=== PATIENT | male | born 1965 | race Hispanic/Latino ===

== ENCOUNTER 2018-03-04 14:08 | Inpatient (IN) | payer OTHER ==
[~2018-03-04] VITALS: Ht 170.2 cm; Wt 58.1 kg
[~2018-03-04 14:08] MED LIST: AMITRIPTYLINE100 MG PO; ATORVASTATIN CA20 MG PO; CEFEPIME-D1 GM/50 ML IVP; CLOPIDOGREL75 MG PO; FERROUS SULFAT325 MG PO; GABAPENTIN400 MG PO; KLONOPIN1 MG PO; LANTUS100 UNITS/ SQ; LISINOPRIL10 MG PO; METOPROLOL TART50 MG PO; SOMA350 MG PO; TYLENOL WITH C1 EACH PO; ULTRAM50 MG PO; VANCOMYCIN HCL1 GM IV
--- OUTSIDE RECORDS SUMMARY | 2018-03-04 14:12 | XMS REPORT ---
Author Author [facility] Address Unknown Phone Unavailable Care Team Providers Care Surgical Nurse Name Role Phone UNKNOWN, REFFERING PP Unavailable SERGIO HUSAIN Unavailable Unavailable Problems This patient has no known problems. Allergies, Adverse Reactions, Alerts This patient has no known allergies or adverse reactions. Medications This patient has no known medications. Encounters Start Date/Time End Date/Time Encounter Type Admission Type Attending Clinicians Care Facility Care Department Encounter ID 2017-05-07 00:00:00 2017-05-07 00:00:00 Outpatient [facility] [id number] Results Test Description Test Time Test Comments Text Results Atomic Results Result Comments POC Glucose, Blood 2017-05-11 11:11:00 POC Glucose (test code=POCGLUC) 208 mg/dL 70-115 If you consider your patient critically ill, the Irene Accu-Chek InformII metershould not be used for Glucose determinations.Draw a venous Glucose and send to the Main Lab for Analysis. POC Glucose, [id number] 07:26:00* Test Item Value Reference Range Comments POC Glucose (test code=POCGLUC) 154 mg/dL 70-115 If you consider your patient critically ill, the Irene Accu-Chek InformII metershould not be used for Glucose determinations.Draw a venous Glucose and send to the Main Lab for Analysis. Basic Metabolic [id number] 06:29:00* Test Item Value Reference Range Comments Sodium (test code=NA) 145 mmol/L 135-145 Potassium (test code=K) 3.9 mmol/L 3.5-5.1 Chloride (test code=CL) 108 mmol/L 98-105 Carbon Dioxide (test code=CO2) 23 mmol/L 22-29 Glucose (test code=GLU) 126 mg/dL 70-115 Blood Urea Nitrogen (test code=BUN) 22 mg/dL 6-20 Creatinine (test code=CREAT) 1.5 mg/dL 0.7-1.2 Calcium (test code=CA) 8.6 mg/dL 8.3-10.5 BUN/Creatinine Ratio (test code=BCRATIO) 14.7 Anion Gap (test code=AGAP) 14 mmol/L 7-16 Estimated GFR (test code=GFR) 52 mL/min/1.73m2 eGFR (estimated Glomerular Filtration Rate) is an estimated value,calculated from the patient's serum creatinine using the MDRD equation.It is NOT the patient's actual GFR. The eGFR provides a more clinicallyuseful measure of kidney disease than serum creatinine alone.This calculation takes sex and race into account, if the informationis provided. If the race is not provided, and the patient isAfrican- [place], multiply by 1.212. If sex is not provided, and thepatient is female, multiply by 0.742. Results for patients <18 years ofage have not been validated by the MDRD study and should be interpretedwith caution.eGFR Result Interpretation:eGFR > or=60 is in the Normal RangeeGFR < 60 may mean kidney diseaseeGFR < 15 may mean kidney failureRanges recommended by the National Kidney Foundation,http://nkdep.nih.gov [id number] 06:00:00* Test Item Value Reference Range Comments WBC (test code=WBC) 12.1 K/cumm 4.4-10.5 RBC (test code=RBC) 3.56 M/cumm 4.10-5.70 Hemoglobin (test code=HGB) 10.4 gm/dL 13.4-17.4 Hematocrit (test code=HCT) 33.0 % 38.7-52.0 MCV (test code=MCV) 92.7 fL 80-100 MCH (test code=MCH) 29.1 pg 27.0-32.5 MCHC (test code=MCHC) 31.4 g/dL 32.0-37.5 RDW (test code=RDW) 17.8 % 11.5-14.5 Platelet Count (test code=PLTCT) 451 K/cumm 140-440 MPV (test code=MPV) 9.8 fL RBC, Crossmatch [id number] 06:00:00* Test Item Value Reference Range Comments Product 1 Code (test code=PRODCODE1) E4532 Unit 1 ID (test code=UNITID1) [id number] Unit 1 ABO (test code=UNITABO1) A Unit 1 Rh (test code=UNITRH1) NEG Unit 1 Interp (test code=UNITINTERP1) Compatible Unit 1 Status (test code=UNITSTAT1) PT Product 2 Code (test code=PRODCODE2) E4532 Unit 2 ID (test code=UNITID2) [id number] Unit 2 ABO (test code=UNITABO2) O Unit 2 Rh (test code=UNITRH2) NEG Unit 2 Interp (test code=UNITINTERP2) Compatible Unit 2 Status (test code=UNITSTAT2) PT Product 3 Code (test code=PRODCODE3) E0336 Unit 3 ID (test code=UNITID3) [id number] Unit 3 ABO (test code=UNITABO3) A Unit 3 Rh (test code=UNITRH3) NEG Unit 3 Interp (test code=UNITINTERP3) Compatible Unit 3 Status (test code=UNITSTAT3) PT Product 4 Code (test code=PRODCODE4) E0336 Unit 4 ID (test code=UNITID4) [id number] Unit 4 ABO (test code=UNITABO4) A Unit 4 Rh (test code=UNITRH4) NEG Unit 4 Interp (test code=UNITINTERP4) Compatible Unit 4 Status (test code=UNITSTAT4) PT POC Glucose, [id number] 20:13:00* Test Item Value Reference Range Comments POC Glucose (test code=POCGLUC) 170 mg/dL 70-115 If you consider your patient critically ill, the Irene Accu-Chek InformII metershould not be used for Glucose determinations.Draw a venous Glucose and send to the Main Lab for Analysis. POC Glucose, [id number] 16:15:00* Test Item Value Reference Range Comments POC Glucose (test code=POCGLUC) 275 mg/dL 70-115 Notify RN or MDIf you consider your patient critically ill, the Irene Accu-Chek InformII metershould not be used for Glucose determinations.Draw a venous Glucose and send to the Main Lab for Analysis. POC Glucose, [id number] 14:36:00* Test Item Value Reference Range Comments POC Glucose (test code=POCGLUC) 294 mg/dL 70-115 Notify RN or MDIf you consider your patient critically ill, the Irene Accu-Chek InformII metershould not be used for Glucose determinations.Draw a venous Glucose and send to the Main Lab for Analysis. Comprehensive Metabolic [id number] 10:35:00* Test Item Value Reference Range Comments Sodium (test code=NA) 136 mmol/L 135-145 Potassium (test code=K) 4.8 mmol/L 3.5-5.1 Chloride (test code=CL) 101 mmol/L 98-105 Carbon Dioxide (test code=CO2) 18 mmol/L 22-29 Glucose (test code=GLU) 361 mg/dL 70-115 Blood Urea Nitrogen (test code=BUN) 27 mg/dL 6-20 Creatinine (test code=CREAT) 1.5 mg/dL 0.7-1.2 Calcium (test code=CA) 8.2 mg/dL 8.3-10.5 Prot Total (test code=TP) 5.5 g/dL 6.4-8.3 Albumin (test code=ALB) 3.2 g/dL 3.5-5.2 A/G Ratio (test code=AGRATIO) 1.4 Ratio Globulin (test code=GLOB) 2.3 2.9-3.1 Bili Total (test code=TBIL) 0.2 mg/dL 0.1-0.9 Alk Phos (test code=APHOS) 94 U/L 40-129 AST (test code=AST) 44 U/L 1-40 ALT (test code=ALT) 29 U/L 1-41 BUN/Creatinine Ratio (test code=BCRATIO) 18.0 Anion Gap (test code=AGAP) 17 mmol/L 7-16 Estimated GFR (test code=GFR) 52 mL/min/1.73m2 eGFR (estimated Glomerular Filtration Rate) is an estimated value,calculated from the patient's serum creatinine using the MDRD equation.It is NOT the patient's actual GFR. The eGFR provides a more clinicallyuseful measure of kidney disease than serum creatinine alone.This calculation takes sex and race into account, if the informationis provided. If the race is not provided, and the patient isAfrican- [place], multiply by 1.212. If sex is not provided, and thepatient is female, multiply by 0.742. Results for patients <18 years ofage have not been validated by the MDRD study and should be interpretedwith caution.eGFR Result Interpretation:eGFR > or=60 is in the Normal RangeeGFR < 60 may mean kidney diseaseeGFR < 15 may mean kidney failureRanges recommended by the National Kidney Foundation,http://nkdep.nih.gov CK [id number] 10:34:00* Test Item Value Reference Range Comments CK (test code=CK) 155 U/L 39-308 CK [id number] 10:34:00* Test Item Value Reference Range Comments CK (test code=CK) 155 U/L 39-308 CKMB (test code=CKMB) 3.6 ng/mL 0.0-4.9 CKMB% (test code=CKMBP) 2.3 % 0.0-3.4 [id number] 08:33:00* Test Item Value Reference Range Comments WBC (test code=WBC) 11.0 K/cumm 4.4-10.5 RBC (test code=RBC) 3.22 M/cumm 4.10-5.70 Hemoglobin (test code=HGB) 9.7 gm/dL 13.4-17.4 READ BACK LAB VALUESVERIFIED BY REPEAT TESTINGCalled to Ari Botello RN at 0830 05/10/2017. Blood transfusion. DD Hematocrit (test code=HCT) 29.8 % 38.7-52.0 MCV (test code=MCV) 92.4 fL 80-100 MCH (test code=MCH) 30.1 pg 27.0-32.5 MCHC (test code=MCHC) 32.6 g/dL 32.0-37.5 RDW (test code=RDW) 18.0 % 11.5-14.5 Platelet Count (test code=PLTCT) 398 K/cumm 140-440 MPV (test code=MPV) 8.9 fL Troponin [id number] 08:01:00* Test Item Value Reference Range Comments Troponin T (test code=BRODIE) 0.043 ng/mL 0.000-0.090 POC Glucose, [id number] 07:47:00* Test Item Value Reference Range Comments POC Glucose (test code=POCGLUC) 254 mg/dL 70-115 Notify RN or MDIf you consider your patient critically ill, the Irene Accu-Chek InformII metershould not be used for Glucose determinations.Draw a venous Glucose and send to the Main Lab for Analysis. FF Plasma, 2 [id number] 06:00:00* Test Item Value Reference Range Comments Product 1 Code (test code=PRODCODE1) E7760 Unit 1 ID (test code=UNITID1) [id number] Unit 1 ABO (test code=UNITABO1) A Unit 1 Rh (test code=UNITRH1) POS Unit 1 Status (test code=UNITSTAT1) PT Product 2 Code (test code=PRODCODE2) E2701 Unit 2 ID (test code=UNITID2) [id number] Unit 2 ABO (test code=UNITABO2) A Unit 2 Rh (test code=UNITRH2) POS Unit 2 Status (test code=UNITSTAT2) PT POC Glucose, [id number] 20:47:00* Test Item Value Reference Range Comments POC Glucose (test code=POCGLUC) 136 mg/dL 70-115 Notify RN or MDIf you consider your patient critically ill, the Irene Accu-Chek InformII metershould not be used for Glucose determinations.Draw a venous Glucose and send to the Main Lab for Analysis. POC Glucose, [id number] 16:39:00* Test Item Value Reference Range Comments POC Glucose (test code=POCGLUC) 181 mg/dL 70-115 If you consider your patient critically ill, the Irene Accu-Chek InformII metershould not be used for Glucose determinations.Draw a venous Glucose and send to the Main Lab for Analysis. POC Glucose, [id number] 12:32:00* Test Item Value Reference Range Comments POC Glucose (test code=POCGLUC) 305 mg/dL 70-115 If you consider your patient critically ill, the Irene Accu-Chek InformII metershould not be used for Glucose determinations.Draw a venous Glucose and send to the Main Lab for Analysis. [id number] 09:41:00* Test Item Value Reference Range Comments WBC (test code=WBC) 10.9 K/cumm 4.4-10.5 RBC (test code=RBC) 2.62 M/cumm 4.10-5.70 Hemoglobin (test code=HGB) 7.3 gm/dL 13.4-17.4 Hematocrit (test code=HCT) 23.0 % 38.7-52.0 MCV (test code=MCV) 87.9 fL 80-100 MCH (test code=MCH) 28.0 pg 27.0-32.5 MCHC (test code=MCHC) 31.9 g/dL 32.0-37.5 RDW (test code=RDW) 18.7 % 11.5-14.5 Platelet Count (test code=PLTCT) 417 K/cumm 140-440 VERIFIED BY REPEAT TESTING READ BACK LAB VALUESreceived REJIMichaela MARIE BOTELLO05/09/2017 @ 0941KP MPV (test code=MPV) 7.5 fL Basic Metabolic [id number] 09:22:00* Test Item Value Reference Range Comments Sodium (test code=NA) 146 mmol/L 135-145 Potassium (test code=K) 4.1 mmol/L 3.5-5.1 Chloride (test code=CL) 112 mmol/L 98-105 Carbon Dioxide (test code=CO2) 22 mmol/L 22-29 Glucose (test code=GLU) 122 mg/dL 70-115 Blood Urea Nitrogen (test code=BUN) 32 mg/dL 6-20 Creatinine (test code=CREAT) 1.5 mg/dL 0.7-1.2 Calcium (test code=CA) 8.5 mg/dL 8.3-10.5 BUN/Creatinine Ratio (test code=BCRATIO) 21.3 Anion Gap (test code=AGAP) 12 mmol/L 7-16 Estimated GFR (test code=GFR) 52 mL/min/1.73m2 eGFR (estimated Glomerular Filtration Rate) is an estimated value,calculated from the patient's serum creatinine using the MDRD equation.It is NOT the patient's actual GFR. The eGFR provides a more clinicallyuseful measure of kidney disease than serum creatinine alone.This calculation takes sex and race into account, if the informationis provided. If the race is not provided, and the patient isAfrican- [place], multiply by 1.212. If sex is not provided, and thepatient is female, multiply by 0.742. Results for patients <18 years ofage have not been validated by the MDRD study and should be interpretedwith caution.eGFR Result Interpretation:eGFR > or=60 is in the Normal RangeeGFR < 60 may mean kidney diseaseeGFR < 15 may mean kidney failureRanges recommended by the National Kidney Foundation,http://nkdep.nih.gov Prothrombin [id number] 09:16:00* Test Item Value Reference Range Comments PT (test code=PT) 16.60 seconds 9.78-13.35 INR (test code=INR) 1.46 Ratio 0.6-1.2 POC Glucose, [id number] 07:57:00* Test Item Value Reference Range Comments POC Glucose (test code=POCGLUC) 126 mg/dL 70-115 If you consider your patient critically ill, the Irene Accu-Chek InformII metershould not be used for Glucose determinations.Draw a venous Glucose and send to the Main Lab for Analysis. Prothrombin [id number] 07:55:00* Test Item Value Reference Range Comments PT (test code=PT) 19.20 seconds 9.78-13.35 READ BACK LAB VALUES VERIFIED BY REPEAT TESTING , Ari REYES INR (test code=INR) 1.69 Ratio 0.6-1.2 [id number] 07:26:00* Test Item Value Reference Range Comments WBC (test code=WBC) 8.6 K/cumm 4.4-10.5 RBC (test code=RBC) 2.19 M/cumm 4.10-5.70 Hemoglobin (test code=HGB) 6.5 gm/dL 13.4-17.4 VERIFIED BY REPEAT TESTING READ BACK LAB VALUESASHA EDDY XXVEPLG3805/09/2017 @ 0726KP Hematocrit (test code=HCT) 20.1 % 38.7-52.0 MCV (test code=MCV) 91.8 fL 80-100 MCH (test code=MCH) 29.6 pg 27.0-32.5 MCHC (test code=MCHC) 32.2 g/dL 32.0-37.5 RDW (test code=RDW) 18.6 % 11.5-14.5 Platelet Count (test code=PLTCT) 124 K/cumm 140-440 VERIFIED BY REPEAT TESTING READ BACK LAB VALUESNO REASONT. EMY BOTELLOUGGDHEERAJ ICZMUQO4205/09/2017 @ 0726KP MPV (test code=MPV) 12.3 fL Basic Metabolic [id number] 06:35:00* Test Item Value Reference Range Comments Sodium (test code=NA) 145 mmol/L 135-145 Potassium (test code=K) 4.8 mmol/L 3.5-5.1 Hemolyzed Chloride (test code=CL) 112 mmol/L 98-105 Carbon Dioxide (test code=CO2) 19 mmol/L 22-29 Glucose (test code=GLU) 112 mg/dL 70-115 Blood Urea Nitrogen (test code=BUN) 34 mg/dL 6-20 Creatinine (test code=CREAT) 1.6 mg/dL 0.7-1.2 Calcium (test code=CA) 8.3 mg/dL 8.3-10.5 BUN/Creatinine Ratio (test code=BCRATIO) 21.3 Anion Gap (test code=AGAP) 14 mmol/L 7-16 Estimated GFR (test code=GFR) 48 mL/min/1.73m2 eGFR (estimated Glomerular Filtration Rate) is an estimated value,calculated from the patient's serum creatinine using the MDRD equation.It is NOT the patient's actual GFR. The eGFR provides a more clinicallyuseful measure of kidney disease than serum creatinine alone.This calculation takes sex and race into account, if the informationis provided. If the race is not provided, and the patient isAfrican- [place], multiply by 1.212. If sex is not provided, and thepatient is female, multiply by 0.742. Results for patients <18 years ofage have not been validated by the MDRD study and should be interpretedwith caution.eGFR Result Interpretation:eGFR > or=60 is in the Normal RangeeGFR < 60 may mean kidney diseaseeGFR < 15 may mean kidney failureRanges recommended by the National Kidney Foundation,http://nkdep.nih.gov POC Glucose, [id number] 20:16:00* Test Item Value Reference Range Comments POC Glucose (test code=POCGLUC) 342 mg/dL 70-115 Notify RN or MDIf you consider your patient critically ill, the Irene Accu-Chek InformII metershould not be used for Glucose determinations.Draw a venous Glucose and send to the Main Lab for Analysis. Prothrombin [id number] 12:23:00* Test Item Value Reference Range Comments PT (test code=PT) 72.20 seconds 9.78-13.35 INR (test code=INR) 6.45 Ratio 0.6-1.2 Partial Thromboplastin [id number] 12:23:00* Test Item Value Reference Range Comments aPTT (test code=PTT) 73.30 seconds 24.39-37.25 [id number] 12:23:00* Test Item Value Reference Range Comments WBC (test code=WBC) 12.1 K/cumm 4.4-10.5 RBC (test code=RBC) 2.84 M/cumm 4.10-5.70 Hemoglobin (test code=HGB) 8.0 gm/dL 13.4-17.4 READ BACK LAB VALUESVERIFIED BY REPEAT TESTINGrechecked & called to .yecenia,rn @ 1223, post txn/mdj Hematocrit (test code=HCT) 24.7 % 38.7-52.0 MCV (test code=MCV) 87.0 fL 80-100 MCH (test code=MCH) 28.2 pg 27.0-32.5 MCHC (test code=MCHC) 32.4 g/dL 32.0-37.5 RDW (test code=RDW) 18.5 % 11.5-14.5 Platelet Count (test code=PLTCT) 450 K/cumm 140-440 MPV (test code=MPV) 8.1 fL POC Glucose, [id number] 11:25:00* Test Item Value Reference Range Comments POC Glucose (test code=POCGLUC) 111 mg/dL 70-115 If you consider your patient critically ill, the Irene Accu-Chek InformII metershould not be used for Glucose determinations.Draw a venous Glucose and send to the Main Lab for Analysis. POC Glucose, [id number] 07:37:00* Test Item Value Reference Range Comments POC Glucose (test code=POCGLUC) 102 mg/dL 70-115 If you consider your patient critically ill, the Irene Accu-Chek InformII metershould not be used for Glucose determinations.Draw a venous Glucose and send to the Main Lab for Analysis. Thyroid Stimulating Hormone (TSH)2017-05-08 06:42:00* Test Item Value Reference Range Comments TSH (test code=TSH) 0.30 mIU/mL 0.270-4.200 Free T4 (Free Thyroxine)2017-05-08 06:42:00* Test Item Value Reference Range Comments T4, Free (test code=FT4) 0.87 ng/dL 0.930-1.700 Basic Metabolic [id number] 06:33:00* Test Item Value Reference Range Comments Sodium (test code=NA) 145 mmol/L 135-145 Potassium (test code=K) 4.0 mmol/L 3.5-5.1 Chloride (test code=CL) 112 mmol/L 98-105 Carbon Dioxide (test code=CO2) 17 mmol/L 22-29 Glucose (test code=GLU) 91 mg/dL 70-115 Blood Urea Nitrogen (test code=BUN) 47 mg/dL 6-20 Creatinine (test code=CREAT) 1.7 mg/dL 0.7-1.2 Calcium (test code=CA) 8.1 mg/dL 8.3-10.5 BUN/Creatinine Ratio (test code=BCRATIO) 27.6 Anion Gap (test code=AGAP) 16 mmol/L 7-16 Estimated GFR (test code=GFR) 45 mL/min/1.73m2 eGFR (estimated Glomerular Filtration Rate) is an estimated value,calculated from the patient's serum creatinine using the MDRD equation.It is NOT the patient's actual GFR. The eGFR provides a more clinicallyuseful measure of kidney disease than serum creatinine alone.This calculation takes sex and race into account, if the informationis provided. If the race is not provided, and the patient isAfrican- [place], multiply by 1.212. If sex is not provided, and thepatient is female, multiply by 0.742. Results for patients <18 years ofage have not been validated by the MDRD study and should be interpretedwith caution.eGFR Result Interpretation:eGFR > or=60 is in the Normal RangeeGFR < 60 may mean kidney diseaseeGFR < 15 may mean kidney failureRanges recommended by the National Kidney Foundation,http://nkdep.nih.gov Glycosylated [id number] 06:25:00* Test Item Value Reference Range Comments HBA1c (test code=HBA1C) 6.1 % 4.8-5.9 POC Glucose, [id number] 20:22:00* Test Item Value Reference Range Comments POC Glucose (test code=POCGLUC) 97 mg/dL 70-115 If you consider your patient critically ill, the Irene Accu-Chek InformII metershould not be used for Glucose determinations.Draw a venous Glucose and send to the Main Lab for Analysis. CK [id number] 18:58:00* Test Item Value Reference Range Comments CK (test code=CK) HIDE U/L 39-308 CKMB (test code=CKMB) 4.2 ng/mL 0.0-4.9 CKMB% (test code=CKMBP) HIDE % 0.0-3.4 Troponin [id number] 18:55:00* Test Item Value Reference Range Comments Troponin T (test code=BRODIE) 0.104 ng/mL 0.000-0.090 Urinalysis [id number] 17:36:00* Test Item Value Reference Range Comments Color (test code=COLOR) Straw Yellow,Straw,Pl yellow Clarity (test code=CLAR) Clear Clear Specific [place] (test code=SPGR) 1.014 1.001-1.035 pH (test code=PH) 5.0 5.0-9.0 Ketone (test code=KET) Negative mg/dL Negative Glucose (test code=GLUCUR) 1000 mg/dL Negative Protein (test code=PROT) 500 mg/dL Negative Bilirubin (test code=BILI) Negative mg/dL Negative Occult Blood (test code=UDOB) Negative Negative Urobilinogen (test code=UROB) 0.2 mg/dL 0.2-1.0 Nitrite (test code=NIT) Negative Negative Leuk Esterase (test code=LEUK) Negative Negative Micros Exam (test code=MEXAM) Indicated Epithelial Cells (test code=EPI) 3-5 /LPF 0-30 WBC, Urine (test code=UWBC) 0-5 /HPF 0-5 RBC, Urine (test code=URBC) 2-5 /HPF 0-5 Bacteria (test code=BACT) None /HPF [id number] 17:32:00* Test Item Value Reference Range Comments Amphetamine (test code=AMPH) Negative Negative For diagnostic purposes only , positive results should always be assessedin conjunctionwith the patient's medical history,clinical examination and otherfindings.To fulfill legal requirements, a more specific alternate chemical methodmust be used inorder to obtain a Confirmed analytical result. GC/MS is the preferred confirmatory method. Barbiturates (test code=VALENTINO) Negative Negative Benzodiazepine (test code=LOW) Negative Negative Cocaine (test code=COCA) Negative Negative Methadone (test code=MTHD) Negative Negative Opiates (test code=OPIA) Negative Negative PCP (test code=PCP) Negative Negative Propoxyphene (test code=PROPOX) Negative Negative THC (test code=THC) Negative Negative Alcohol, Urine (test code=ETOHU) <0.01 g/dL 0.00-0.01 POC Glucose, [id number] 15:48:00* Test Item Value Reference Range Comments POC Glucose (test code=POCGLUC) 172 mg/dL 70-115 If you consider your patient critically ill, the Irene Accu-Chek InformII metershould not be used for Glucose determinations.Draw a venous Glucose and send to the Main Lab for Analysis. CK [id number] 13:51:00* Test Item Value Reference Range Comments CKMB (test code=CKMB) 3.7 ng/mL 0.0-4.9 Troponin [id number] 13:50:00* Test Item Value Reference Range Comments Troponin T (test code=BRODIE) 0.078 ng/mL 0.000-0.090 POC Glucose, [id number] 11:37:00* Test Item Value Reference Range Comments POC Glucose (test code=POCGLUC) 267 mg/dL 70-115 Notify RN or MDIf you consider your patient critically ill, the Irene Accu-Chek InformII metershould not be used for Glucose determinations.Draw a venous Glucose and send to the Main Lab for Analysis. POC Glucose, [id number] 08:13:00* Test Item Value Reference Range Comments POC Glucose (test code=POCGLUC) 307 mg/dL 70-115 If you consider your patient critically ill, the Irene Accu-Chek InformII metershould not be used for Glucose determinations.Draw a venous Glucose and send to the Main Lab for Analysis. CK [id number] 06:30:00* Test Item Value Reference Range Comments CK (test code=CK) 138 U/L 39-308 CKMB (test code=CKMB) 4.4 ng/mL 0.0-4.9 CKMB% (test code=CKMBP) 3.2 % 0.0-3.4 Comprehensive Metabolic [id number] 06:30:00* Test Item Value Reference Range Comments Sodium (test code=NA) 137 mmol/L 135-145 Potassium (test code=K) 5.3 mmol/L 3.5-5.1 Chloride (test code=CL) 104 mmol/L 98-105 Carbon Dioxide (test code=CO2) 16 mmol/L 22-29 Glucose (test code=GLU) 490 mg/dL 70-115 Blood Urea Nitrogen (test code=BUN) 62 mg/dL 6-20 Creatinine (test code=CREAT) 2.3 mg/dL 0.7-1.2 Calcium (test code=CA) 8.3 mg/dL 8.3-10.5 Prot Total (test code=TP) 5.5 g/dL 6.4-8.3 Albumin (test code=ALB) 3.3 g/dL 3.5-5.2 A/G Ratio (test code=AGRATIO) 1.5 Ratio Globulin (test code=GLOB) 2.2 2.9-3.1 Bili Total (test code=TBIL) <0.1 mg/dL 0.1-0.9 Alk Phos (test code=APHOS) 120 U/L 40-129 AST (test code=AST) 17 U/L 1-40 ALT (test code=ALT) 19 U/L 1-41 BUN/Creatinine Ratio (test code=BCRATIO) 27.0 Anion Gap (test code=AGAP) 17 mmol/L 7-16 Estimated GFR (test code=GFR) 32 mL/min/1.73m2 eGFR (estimated Glomerular Filtration Rate) is an estimated value,calculated from the patient's serum creatinine using the MDRD equation.It is NOT the patient's actual GFR. The eGFR provides a more clinicallyuseful measure of kidney disease than serum creatinine alone.This calculation takes sex and race into account, if the informationis provided. If the race is not provided, and the patient isAfrican- [place], multiply by 1.212. If sex is not provided, and thepatient is female, multiply by 0.742. Results for patients <18 years ofage have not been validated by the MDRD study and should be interpretedwith caution.eGFR Result Interpretation:eGFR > or=60 is in the Normal RangeeGFR < 60 may mean kidney diseaseeGFR < 15 may mean kidney failureRanges recommended by the National Kidney Foundation,http://nkdep.nih.gov CK [id number] 06:30:00* Test Item Value Reference Range Comments CK (test code=CK) 138 U/L 39-308 Antibody Screen - [id number] 06:28:00* Test Item Value Reference Range Comments Antibody Screen (test code=ABSCR) Negative Blood Type and [id number] 06:03:00* Test Item Value Reference Range Comments ABO type (test code=ABO) A Rh Type (test code=RH) Negative Occult [id number] 05:41:00* Test Item Value Reference Range Comments Occ Bld (test code=HSOB) Positive Negative Called to Juan Antonio Friedman 05/07/2017 05: 41 by [facility] Value OK Troponin [id number] 05:18:00* Test Item Value Reference Range Comments Troponin T (test code=BRODIE) 0.081 ng/mL 0.000-0.090 [id number] 05:18:00* Test Item Value Reference Range Comments NT ProBnp (test code=PBNP) 852 pg/mL 0-124 CBC with [id number] 05:05:00* Test Item Value Reference Range Comments WBC (test code=WBC) 11.2 K/cumm 4.4-10.5 RBC (test code=RBC) 2.23 M/cumm 4.10-5.70 Hemoglobin (test code=HGB) 6.2 gm/dL 13.4-17.4 Hematocrit (test code=HCT) 20.3 % 38.7-52.0 MCV (test code=MCV) 90.7 fL 80-100 MCH (test code=MCH) 27.6 pg 27.0-32.5 MCHC (test code=MCHC) 30.4 g/dL 32.0-37.5 RDW (test code=RDW) 18.3 % 11.5-14.5 Platelet Count (test code=PLTCT) 440 K/cumm 140-440 MPV (test code=MPV) 7.8 fL Diff Method (test code=DIFFM) Auto Neutrophil (test code=NEUT) 79.7 % 36-70 Lymphocyte (test code=LYMPH) 13.3 % 12-44 Monocyte (test code=MONO) 5.7 % 0-11 Eosinophil (test code=EOS) 0.9 % 0-7 Basophil (test code=BASO) 0.4 % 0-2 Neutro Abs (test code=ANEUT) 8.9 K/cumm 1.6-7.4 Lymph Abs (test code=ALYMPH) 1.5 K/cumm 0.5-4.6 [place] Abs (test code=AMONO) 0.6 K/cumm 0.0-1.2 Eos Abs (test code=AEOS) 0.10 K/cumm 0.00-0.74 Baso Abs (test code=ABASO) 0.0 K/cumm 0.00-0.21 Anisocytosis (test code=ANISO) Slight Hypochromic (test code=HYPO) Slight
[2018-03-04] MEDS ORDERED: ONDANSETRON HCL INJ 2 MG/ML VIAL IV STA (14:20)
[2018-03-04] MEDS ORDERED: MORPHINE SULFATE 2 MG/ML SYR IV SCH (14:20)
[2018-03-04 14:59] LABS: BASOPHILS # (AUTO) 0.1 (0.0-0.1); BASOPHILS % 0.4 % (0.0-1.0); EOSINOPHILS # (AUTO) 0.1 (0.0-0.4); EOSINOPHILS % 0.8 % (0.0-6.0); HEMOGLOBIN 9.3 g/dL (14.0-18.0); LYMPHOCYTES # (AUTO) 1.5 (1.0-3.2); LYMPHOCYTES % 9.4 % (18.0-39.1); MEAN CORPUSCULAR HEMOGLOBIN 28.3 pg (28-32); MEAN CORPUSCULAR HGB CONC 33.2 g/dL (31-35); MEAN CORPUSCULAR VOLUME 85.1 fL (81-99); MONOCYTES # (AUTO) 1.1 (0.2-0.8); MONOCYTES % 6.7 % (4.4-11.3); NEUTROPHILS # (AUTO) 13.3 (2.1-6.9); NEUTROPHILS % 82.1 % (38.7-80.0); PLATELET COUNT 451 x10e3/uL (140-360); RED BLOOD COUNT 3.29 x10e6/uL (4.3-5.7); RED CELL DISTRIBUTION WIDTH 14.9 % (11.7-14.4)
[2018-03-04 15:27] LABS: ALBUMIN 2.3 g/dL (3.5-5.0); ALBUMIN/GLOBULIN RATIO 0.5 (0.8-2.0); ANION GAP 15.3 mmol/L (8-16); CALCIUM 8.7 mg/dL (8.4-10.2); CREATININE, SERUM 3.37 mg/dL (0.72-1.25); POTASSIUM 3.3 mmol/L (3.5-5.1)
--- NOTE | 2018-03-04 15:45 | Diagnostic Imaging Report ---
EXAM: HIP RIGHT 2-3 VW (+/- PELVIS) DATE: 03/04/2018 2:20 PM INDICATION: \S\fall r/o fx COMPARISON: None FINDINGS: Right hip prosthesis present, in satisfactory alignment. On the frontal view there is a faint lucency in the lateral cortex of the proximal femur. Vascular calcifications and vascular stents overlie the pelvis and right hip. IMPRESSION: Right hip prosthesis. Vague cortical discontinuity laterally could represent nondisplaced fracture. Signed by: Dr. Loyd Zurita MD on 03/04/2018 3:42 PM
--- NOTE | 2018-03-04 15:46 | Diagnostic Imaging Report ---
EXAM: FEMUR TWO VIEW MINIMUM RIGHT DATE: 03/04/2018 2:57 PM INDICATION: \S\r/o fx COMPARISON: None FINDINGS: Right hip prosthesis with ill-defined cortical discontinuity lateral aspect proximal femur again noted. Advanced vascular calcifications and vascular stent overlying the inguinal region present. Additional vascular stent distally. IMPRESSION: Right hip prosthesis with questionable nondisplaced fracture proximal femoral cortex.a Signed by: Dr. Loyd Zurita MD on 03/04/2018 3:43 PM
[2018-03-04] MEDS ORDERED: INSULIN REGULAR, HUMAN 100 UNIT/1 ML 3ML VIAL IV SCH (16:00)
[2018-03-04] MEDS ORDERED: HYDROMORPHONE 1MG/1ML INJ IV STA (16:16)
[2018-03-04] MEDS ORDERED: SODIUM CHLORIDE FLUSH 10 ML SYR INJ PRN (17:00)
[2018-03-04] MEDS ORDERED: DEXTROSE 50% SYRINGE 50 ML IV PRN (17:00)
[2018-03-04] MEDS: LORAZEPAM INJ 2 MG/ML VIAL IV PRN (17:38)
[2018-03-04 18:20] VITALS: BP 128/76
[2018-03-04 19:10] VITALS: BP 134/69
[2018-03-04] MEDS: ONDANSETRON HCL INJ 2 MG/ML VIAL IV PRN (19:39)
[2018-03-04] MEDS: HYDROMORPHONE 1MG/1ML INJ IV PRN (19:39)
[2018-03-04 20:08] VITALS: BP 132/82
[2018-03-04] MEDS: INSULIN REGULAR, HUMAN 100 UNIT/1 ML 3ML VIAL SQ SCH (21:00)
[2018-03-05] VITALS (9 sets, daily range): BP systolic 103–117; BP diastolic 53–73
[2018-03-05] MEDS: ONDANSETRON HCL INJ 2 MG/ML VIAL IV PRN ×2 (04:05→20:20)
[2018-03-05] MEDS: HYDROMORPHONE 1MG/1ML INJ IV PRN ×6 (04:05→23:31)
[2018-03-05 06:30] LABS: BASOPHILS # (AUTO) 0.1 (0.0-0.1); BASOPHILS % 0.5 % (0.0-1.0); EOSINOPHILS # (AUTO) 0.4 (0.0-0.4); EOSINOPHILS % 2.9 % (0.0-6.0); HEMATOCRIT 28.6 % (38.2-49.6); HEMOGLOBIN 9.2 g/dL (14.0-18.0); LYMPHOCYTES % 16.7 % (18.0-39.1); MEAN CORPUSCULAR HEMOGLOBIN 27.8 pg (28-32); MEAN CORPUSCULAR HGB CONC 32.2 g/dL (31-35); MEAN CORPUSCULAR VOLUME 86.4 fL (81-99); MONOCYTES # (AUTO) 0.9 (0.2-0.8); MONOCYTES % 7.7 % (4.4-11.3); NEUTROPHILS # (AUTO) 8.8 (2.1-6.9); NEUTROPHILS % 71.8 % (38.7-80.0); PLATELET COUNT 491 x10e3/uL (140-360); RED BLOOD COUNT 3.31 x10e6/uL (4.3-5.7); RED CELL DISTRIBUTION WIDTH 14.9 % (11.7-14.4)
[2018-03-05 06:50] LABS: INR 1.35; PROTHROMBIN TIME 15.7 seconds (11.9-14.5)
[2018-03-05 06:51] LABS: PARTIAL THROMBOPLASTIN TIME 38.6 seconds (23.8-35.5)
[2018-03-05 07:08] LABS: ANION GAP 14.4 mmol/L (8-16); CALCIUM 8.9 mg/dL (8.4-10.2); CREATININE, SERUM 3.47 mg/dL (0.72-1.25); POTASSIUM 3.4 mmol/L (3.5-5.1)
[2018-03-05] MEDS: INSULIN REGULAR, HUMAN 100 UNIT/1 ML 3ML VIAL SQ SCH ×4 (08:38→21:00)
--- NOTE | 2018-03-05 12:10 | Diagnostic Imaging Report ---
PROCEDURE:HIP RIGHT 2-3 VW (+/- PELVIS) COMPARISON:03/04/2018.. INDICATIONS:ACUTE NONDISPLACED FRACTURE FINDINGS: Cortical discontinuity along the lateral aspect of the proximal femur is again noted, unchanged, compatible with nondisplaced fracture. Intact surgical hardware related to right hip replacement. Multiple iliac and right superficial femoral arterial stents unchanged. CONCLUSION: no appreciable interval change in acute nondisplaced lateral cortical fracture of the proximal femur. Intact right hip prosthesis. Dictated by: Saad Gill M.D. on 03/05/2018 at 12:11 Electronically approved by: Saad Gill M.D. on 03/05/2018 at 12:11
[2018-03-05] MEDS ORDERED: MILRINONE L1 MG/1 ML IV (15:02)
[2018-03-05] MEDS ORDERED: MILRINONE LACTATE 1 MG/ML VIAL IV SCH (15:30)
[2018-03-05] MEDS ORDERED: HYDRALAZINE HCL 20 MG/ML VIAL IV PRN (15:45)
--- NOTE | 2018-03-05 16:20 | History and Physical ---
CHIEF COMPLAINT: Fall on the right hip. HISTORY OF PRESENT ILLNESS: This is a 52-year-old male with known ESRD on HD, heart failure on a particular cardiac drip, diabetes, hypertension, who presents to the ED after having a fall yesterday at home. Patient reports that he slipped and landed on his right hip, was found to have an acute nondisplaced lateral cortical fracture of the proximal femur on imaging studies. Patient was evaluated at bedside. Currently pain is controlled. Patient denies any other issues at this time. REVIEW OF SYSTEMS PERTINENT POSITIVE: Mechanical fall. PERTINENT NEGATIVE: Denies chest pain, palpitations, nausea, vomiting, diarrhea, dysuria, hematuria, frequency, urgency, lightheadedness, dizziness, abdominal pain, headache, shortness of breath, or any other complaints. REST OF 14-POINT REVIEW OF SYSTEMS: Have been reviewed with the patient and are negative. ALLERGIES: NO KNOWN DRUG ALLERGIES. HOME MEDICATIONS: Lipitor 80 mg daily, Plavix 75 mg daily, iron tablets 1 tab daily b.i.d., gabapentin 400 mg daily, Lantus 30 units subcutaneous at bedtime, metoprolol tartrate 50 mg p.o. b.i.d., milrinone drip. PAST MEDICAL HISTORY: Diabetes, heart failure on a milrinone drip, end-stage renal disease on HD, hypertension, peripheral neuropathy. SURGICAL HISTORY: He has a right hip prosthesis. FAMILY HISTORY: Hypertension, diabetes. SOCIAL HISTORY: Denies drugs, alcohol. Does not smoke. VITAL SIGNS: Temperature is 98.3, pulse is 114, respiratory rate is 16, blood pressure is 117/61, pulse ox 98% on room air. LAB FINDINGS: Show a white count of 12.2, hemoglobin 9.2, hematocrit is 28.6, platelets of 491. Coagulation: PT 15, INR 1.3, PTT 38.6. Chemistry: Sodium 136, potassium 3.4, chloride 95, bicarb 30, anion gap is 14, BUN is 39, creatinine is 3.4, glucose of 280. Albumin 2.3. Troponin is 0.193. LFTs normal. MICROBIOLOGY: None. IMAGING STUDIES: Hip x-ray: Right hip prosthesis with an acute nondisplaced lateral cortical fracture of the proximal femur. PHYSICAL EXAMINATION GENERAL: Not in acute distress. Alert, oriented x3, cooperative on exam. HEENT: Head: Normocephalic, atraumatic. Eyes: Pupils equally round and reactive to light bilaterally. Extraocular movements intact bilaterally. Neck was supple with good range of motion. Throat: No evidence of any erythema or exudates in the posterior pharynx. Has poor dentition. PULMONARY: Clear to auscultation bilaterally. No wheezing, no rales, no rhonchi, no crackles appreciated. CARDIOVASCULAR: Positive S1/S2. No murmurs, rubs or gallops appreciated. ABDOMEN: Soft, nondistended, nontender to palpation. Bowel sounds present. MUSCULOSKELETAL: Strength is 5/5 throughout. No evidence of any musculoskeletal deficit on examination. No weakness appreciated. NEUROLOGICAL: Cranial nerves 2-12 grossly intact. No evidence of any neurological deficit on exam. SKIN: Intact. Warm to touch. Good capillary refill. PSYCHIATRIC: Normal affect and mood. EXTREMITIES: No edema. Good range of motion throughout. ASSESSMENT AND PLAN 1. Status post mechanical fall with right subcortical proximal femur fracture with a right hip prosthesis: Orthopedics consulted, recommends nonweightbearing for 2 months, pain control, and long term facility placement. 2. End-stage renal disease on hemodialysis: Nephrology consulted for hemodialysis. Has a right heart Perma-Cath. 3. Congestive heart failure with underlying systolic dysfunction: He is currently on milrinone drip, which we must continue and will get cardiology consultation to monitor and manage. 4. Type 2 diabetes: Insulin sliding scale, Accu-Cheks, long-acting Levemir. 5. Hypertension: Stable, continue same medications, p.r.n. hydralazine. 6. Prophylaxis: He will be on heparin. 7. Fluid, electrolytes, nutrients: Heart-healthy diet as well as renal diet. 8. Disposition: Observation. Ortho, Cardiology and Nephrology all have been consulted. DISCHARGE PLANNING: halfway facility is needed. Case Management has been consulted for placement. Job#: [id number] EV
[2018-03-05] MEDS: METOPROLOL TARTRATE 50 MG TAB PO SCH (17:16)
[2018-03-05] MEDS ORDERED: SODIUM CHLORIDE 0.9% 1000ML 2,000 ML IV PRN (18:15)
[2018-03-05] MEDS ORDERED: HEPARIN SOD (PORCINE) 1000 UNIT/ML SDV IV PRN (18:15)
--- NOTE | 2018-03-05 20:32 | Consultation ---
DATE OF CONSULTATION: March 05, 2018 CHIEF COMPLAINT: Right hip pain. HISTORY OF PRESENT ILLNESS: The patient is a medially frail 52-year-old gentleman who slipped on a wet floor. He noted the sudden onset of pain in his right hip. This took place yesterday. He previously walked independently. He states he had no hip pain prior to the fall. He has multiple medical problems and is on disability. He was recently started on dialysis 1 month ago. PAST MEDICAL HISTORY: Cardiac disease, end-stage renal disease, peripheral vascular disease. PREVIOUS SURGERIES: Right hip hemiarthroplasty. Lower extremity bypass grafts. Dialysis catheter placement. MEDICATIONS: See list. ALLERGIES: HE DENIES. SOCIAL HISTORY: He smokes 1 to 2 cigarettes a day. He does not drink alcohol. He lives at home with his mother and is on disability. PHYSICAL EXAMINATION: GENERAL: He is in no obvious distress. He has a subclavian dialysis catheter. EXTREMITIES: His right lower extremity is neutrally rotated. The outer thigh is not swollen. He has pain with any attempt at passive range of motion. Limb lengths are equal. Distal neurovascular exam is normal. X RAYS: Were reviewed which show a right hip press-fit hemiarthroplasty with a unicortical crack in the lateral cortex. The details are somewhat obscured. The prosthesis does not appear to be loose. IMPRESSION: Right hip periprosthetic fracture. The patient has multiple medical problems including cardiac disease, end-stage renal disease and diabetes. The risk of any type of surgical intervention are more significant than in a patient without such medical concerns. I discussed this with the patient. At present, the fracture is completely nondisplaced. I would defer from performing surgery unless it was absolutely necessary. He can be touchdown weightbearing with a walker. We will repeat the x-rays in roughly 1 week. Job#: [id number]
[2018-03-05] MEDS: INSULIN DETEMIR 100 UNIT/ML PEN SQ SCH (21:00)
[2018-03-05] MEDS ORDERED: ATORVASTATIN 20 MG TAB PO SCH (21:00)
[2018-03-05] MEDS: ATORVASTATIN 40 MG TAB PO SCH (22:04)
[2018-03-06] MEDS: HYDROMORPHONE 1MG/1ML INJ IV PRN ×6 (02:30→21:22)
[2018-03-06 03:12] LABS: BILIRUBIN,URINE NEGATIVE (NEGATIVE); CLARITY,URINE CLEAR (CLEAR); COLOR,URINE YELLOW (YELLOW); KETONES,URINE NEGATIVE (NEGATIVE); LEUKOCYTE ESTERASE ,URINE NEGATIVE (NEGATIVE); NITRITE,URINE NEGATIVE (NEGATIVE); PROTEIN,URINE DIPSTICK 2+ (NEGATIVE); URINE UROBILINOGEN 0.2 mg/dL (0.2 - 1)
[2018-03-06 03:13] LABS: BACTERIA,URINE RARE /HPF; RBC,URINE 0-5 /HPF (0-5); WBC,URINE (MAN) 0-5 /HPF (0-5)
[2018-03-06 03:14] LABS: EPITHELIAL CELLS,URINE RARE /LPF; YEAST,URINE FEW
[2018-03-06 05:21] VITALS: BP 121/56
[2018-03-06 06:41] LABS: BASOPHILS # (AUTO) 0.1 (0.0-0.1); BASOPHILS % 0.7 % (0.0-1.0); EOSINOPHILS # (AUTO) 0.4 (0.0-0.4); EOSINOPHILS % 4.2 % (0.0-6.0); HEMOGLOBIN 9.2 g/dL (14.0-18.0); LYMPHOCYTES # (AUTO) 2.1 (1.0-3.2); LYMPHOCYTES % 20.3 % (18.0-39.1); MEAN CORPUSCULAR HEMOGLOBIN 28.1 pg (28-32); MEAN CORPUSCULAR HGB CONC 31.7 g/dL (31-35); MEAN CORPUSCULAR VOLUME 88.7 fL (81-99); MONOCYTES % 9.8 % (4.4-11.3); NEUTROPHILS # (AUTO) 6.6 (2.1-6.9); NEUTROPHILS % 64.2 % (38.7-80.0); PLATELET COUNT 468 x10e3/uL (140-360); RED BLOOD COUNT 3.27 x10e6/uL (4.3-5.7)
[2018-03-06 07:06] LABS: ANION GAP 12.6 mmol/L (8-16); CALCIUM 8.7 mg/dL (8.4-10.2); CREATININE, SERUM 2.34 mg/dL (0.72-1.25); POTASSIUM 3.6 mmol/L (3.5-5.1)
[2018-03-06] MEDS: INSULIN REGULAR, HUMAN 100 UNIT/1 ML 3ML VIAL SQ SCH ×4 (07:30→21:41)
[2018-03-06 07:39] VITALS: BP 112/61
[2018-03-06] MEDS ORDERED: SODIUM CHLORIDE 0.9% IV SCH (08:00)
[2018-03-06] MEDS ORDERED: MILRINONE LACTATE IV SCH (08:00)
[2018-03-06] MEDS: ONDANSETRON HCL INJ 2 MG/ML VIAL IV PRN ×2 (08:30→15:42)
[2018-03-06] MEDS: GABAPENTIN 300 MG CAP PO SCH (08:38)
[2018-03-06] MEDS: CLOPIDOGREL BISULFATE 75 MG TAB PO SCH (08:38)
[2018-03-06] MEDS: METOPROLOL TARTRATE 50 MG TAB PO SCH ×2 (08:38→16:15)
[2018-03-06] MEDS ORDERED: GABAPENTIN 400 MG CAP PO SCH (09:00)
--- NOTE | 2018-03-06 09:47 | Consultation ---
DATE OF CONSULTATION: March 05, 2018 CARDIOLOGY CONSULTATION REASON FOR CONSULTATION: CHF. CONSULTING PHYSICIAN: Dr. Michaud HPI: This is a 52-year-old male with an extensive cardiac history that presented status post fall. According to the patient, he accidentally slipped and fell sustaining pain to his right hip that he came into the emergency room for evaluation. He recently had a hip replacement surgery on the right side of the hip, and has been on Xarelto. He has a history of TX with stents, history of peripheral arterial problems with fem-pop done in the past. He was recently admitted at [facility] and was sent to the [facility] for CHF evaluation. He was started on Primacor drip and was discharged home on a Life Vest. He stated the Life Vest was too bulky on him and he stopped wearing it. He denied any chest pain, any palpitation, any dizziness, any shortness of breath, or diaphoresis. PAST MEDICAL HISTORY: Systolic CHF, diabetes, TX, end-stage renal disease, on dialysis, anemia, chronic lower back pain, hypertension, hyperlipidemia, peripheral neuropathy, and PAD. PAST SURGICAL HISTORY: Cardiac stents times 2, right hip surgery, fem-pop, and back surgery. FAMILY HISTORY: Noncontributory. SOCIAL HISTORY: He lives at home with the mother. He smokes 1-2 packs of cigarettes daily. MEDICATION: See med list. ALLERGIES: HE IS NOT ALLERGIC TO ANY MEDICATIONS. REVIEW OF SYSTEMS: Negative except those mentioned above. He is status post fall. PHYSICAL EXAMINATION VITAL SIGNS: Temperature 98, heart rate 90, blood pressure 112/61, respirations 18, oxygen saturation 97% on room air. GENERAL: He is pale, jaundiced, awake, alert, and oriented times 3. HEENT: Mucous membrane moist. NECK: Supple. LUNGS: Bilateral clear to auscultation. CARDIOVASCULAR: S1 and S2 present. ABDOMEN: Soft. NEUROLOGICAL: Intact. EXTREMITIES: With no edema. He complained of pain to the right hip. LABS: Sodium 141, potassium 3.6, chloride 102, CO2 30, BUN 21, creatinine 2.34, glucose 175. White blood cells 10.3, hemoglobin 9.2, hematocrit 29, and platelets 468,000. PT 15.7, PTT 38.6 and INR 1.35. IMPRESSION 1. Status post fall. 2. Systolic congestive heart failure. 3. Tobacco abuse. 4. End-stage renal disease, on dialysis. 5. Diabetes. 6. Hypertension. 7. History of coronary artery disease. ASSESSMENT AND PLAN: He had an echo done in the clinic in January 2018 that showed EF 20%. Will go ahead and get another echo to reassess the LV function since he stopped wearing his Life Vest. Will go ahead and continue the Primacor drip. We may consider EP consult for possible ICD placement and cardiac catheterization, if he agrees. Will continue all his medications. Counseled on tobacco cessation. Further cardiac workup pending clinical course. Thank you for this consultation. DICTATED BY CAMERON ROBERTS NP Job#: [id number] RENU
[2018-03-06 11:09] VITALS: BP 117/56
[2018-03-06] MEDS: MILRINONE LACTATE IV SCH (12:00)
[2018-03-06] MEDS: SODIUM CHLORIDE 0.9% IV SCH (12:00)
--- NOTE | 2018-03-06 12:31 | Consultation ---
DATE OF CONSULTATION: March 05, 2018 NOTE: This is a late entry because Dr. Torres's name was on consult. They did not change the name. I was not able to pull up the records in time yesterday. HISTORY OF PRESENT ILLNESS: The patient was seen and examined yesterday. Dialysis was ordered. This is a 52-year-old gentleman. He is known to our nephrology service. Patient with renal specialist Dr. Torres. Dialyzes with a right IJ tunneled dialysis catheter at the [facility]. Has multiple comorbidities, underlying end-stage renal disease, hypertension, anemia of chronic kidney disease, peripheral vascular disease, significant cardiac disease, history of prior femoral neck fracture, type-2 diabetes with end-organ damage, history of right open reduction and internal fixation of femur, suffered ATN from cardiac issues and subsequently required dialysis, currently dialysis dependent, history of tobacco addiction and underlying COPD, hypertension, prior appendectomy, back surgery. Last echo shows ejection fraction 55%. Renal consult for management of kidney failure. He was admitted with acute nondisplaced lateral cortical fracture of the proximal femur with intact right hip prosthesis. Laboratory tests show a potassium of 3.4, although I found 2 packets of orange juice in his room. I spoke to the nurse, and the orange juice was taken away. The patient was instructed not to drink orange juice or eat bananas. Patient placed on a strict potassium diet. Nurse put in the order. Labs show sodium 136, potassium 3.4, bicarbonate 30, creatinine 3.47. CBC shows a hemoglobin 9.2 and white count 12.24. CURRENT MEDICATIONS: Please see MAR. He is on: 1. Insulin. 2. Gabapentin 600 mg p.o. daily. 3. Atorvastatin 80 mg at bedtime. 4. Plavix 75 mg daily. 5. Hydromorphone p.r.n. 6. Lorazepam p.r.n. 7. Melatonin p.r.n. for sleep. 8. Metoprolol 50 mg p.o. b.i.d. 9. Primacor 2.5 mg IV daily, which was discontinued. 10. Ondansetron p.r.n. SOCIAL HISTORY: Patient denies smoking, but I have a feeling he continues to smoke. Denies drinking or taking any narcotic pain medication. PHYSICAL EXAMINATION GENERAL: Awake, alert, lying supine in no apparent distress. VITALS: Blood pressure 136/60, pulse rate 80. HEAD AND NECK: Corneas clear. Oral mucosa dry. Neck veins flat. LUNGS: Bibasilar rales. HEART: S1, S2 audible. ABDOMEN: Otherwise soft and nontender. LOWER EXTREMITIES: Examination shows no edema. No detailed deep palpation or detailed exam done of lower extremities due to the fracture. IMPRESSION AND PLAN: End-stage renal disease. Renal diet adjusted. Mild fluid overload. Underlying hypertension, diabetes, multiple comorbidities. Does not have an AV fistula. He needs one. Plan to arrange dialysis. Potassium and fluid restriction ordered. Discussed with RN. Discussed with patient. Resume phosphorus binders. Job#: [id number]
[2018-03-06] MEDS: SEVELAMER CARBONATE 800 MG TAB PO SCH ×2 (14:37→16:15)
[2018-03-06 15:34] VITALS: BP 136/66
[2018-03-06 20:00] VITALS: BP 120/58
[2018-03-06] MEDS: ATORVASTATIN 40 MG TAB PO SCH (21:20)
[2018-03-06] MEDS: INSULIN DETEMIR 100 UNIT/ML PEN SQ SCH (21:41)
[2018-03-06] MEDS: ACETAMINOPHEN 325 MG TAB PO PRN (22:12)
[2018-03-07] MEDS: HYDROMORPHONE 1MG/1ML INJ IV PRN ×6 (00:46→21:10)
[2018-03-07 04:00] VITALS: BP 118/74
[2018-03-07 07:36] LABS: ALANINE AMINOTRANSFERASE < 6 IU/L (0-55); ALBUMIN 2.1 g/dL (3.5-5.0); ALBUMIN/GLOBULIN RATIO 0.5 (0.8-2.0); ALKALINE PHOSPHATASE 82 IU/L (40-150); ANION GAP 13.8 mmol/L (8-16); BLOOD UREA NITROGEN 31 mg/dL (7-26); BUN/CREATININE RATIO 10 (6-25); CALCIUM 8.4 mg/dL (8.4-10.2); CARBON DIOXIDE 28 mmol/L (22-29); CHLORIDE 102 mmol/L (98-107); CREATININE, SERUM 2.99 mg/dL (0.72-1.25); EST GLOMERULAR FILTRATION RATE 22 ML/MIN (60-); GLUCOSE 218 mg/dL (74-118); POTASSIUM 3.8 mmol/L (3.5-5.1); SODIUM 140 mmol/L (136-145)
[2018-03-07 07:37] VITALS: BP 122/79
[2018-03-07 07:38] VITALS: BP 122/79
--- NOTE | 2018-03-07 07:56 | Consultation ---
DATE OF CONSULTATION: March 06, 2018 REFERRING PHYSICIAN: Dr. Clark REASON FOR CONSULT: Cardiomyopathy, consider defibrillator. HISTORY OF PRESENT ILLNESS: This is a 52-year-old gentleman with a history of severe nonischemic dilated cardiomyopathy with ejection fraction of 25% to 30% has been refractory to medical therapy. The patient states he was diagnosed about 3-4 months ago. The patient has been on milrinone drip as an outpatient. He is congestive heart failure, class III, ambulatory. The patient presented with progressive shortness of breath. Was found to be volume overloaded. He is undergoing medical treatment and currently feels better. The patient was recommended a Life Vest. He is not currently wearing it. He says it is too bulky. Also, the patient has end-stage renal disease, on hemodialysis through a right subclavian catheter. There is no history of syncope. No palpitations. REVIEW OF SYSTEMS CONSTITUTIONAL: Progressive weakness. CARDIOVASCULAR: As per HPI. RESPIRATORY: Negative. GASTROINTESTINAL: Negative. GENITOURINARY: Negative. MUSCULOSKELETAL: Negative. HEENT: Eyes negative. ENT negative. ALLERGIES/IMMUNOLOGY: Negative. PSYCHIATRY: Negative. PAST MEDICAL HISTORY: Hypertension, cardiomyopathy. SURGICAL HISTORY: Negative. FAMILY HISTORY: No premature coronary artery disease. SOCIAL HISTORY: No current smoking, alcohol or illicit drugs. PHYSICAL EXAMINATION VITALS: Blood pressure 110/60, pulse 78, respirations 20, O2 sat 98%. GENERAL: No acute distress. HEENT: Moist mucous membranes. CARDIOVASCULAR: Regular. RESPIRATORY: Clear. ABDOMEN: Soft and nontender. MUSCULOSKELETAL: Two plus pulses. NEUROLOGICAL: No focal deficit. SKIN: No lesions. Presence of dialysis catheter in the right subclavicular area. PSYCHIATRIC: Normal thought process. EKG is sinus rhythm. Normal QRS duration. IMPRESSION 1. Nonischemic dilated cardiomyopathy refractory to medical therapy. 2. Congestive heart failure, class III. 3. End-stage renal disease, on hemodialysis: Presence of dialysis catheter in the right clavicular area. RECOMMENDATIONS: I had a long discussion with the patient. He will benefit from an implantable defibrillator for primary prevent of sudden cardiac . This was explained in detail. Explained the different options, transvenous versus subcutaneous. He will be a better candidate for subcutaneous given his increased risk for infection, the fact that he has a dialysis catheter in place, etc. This was explained in detail, procedure, benefits and risks. Patient voices understanding. He states he would like to think about it. We provided our office contact information. Should he develop any questions or if he wants to proceed in the near future, then will arrange for a subcutaneous defibrillator. In the meantime, he is to continue aggressive medical therapy with Dr. Clark. Thank you for letting us participate in Mr. Winter's healthcare. Job#: [id number] RI
[2018-03-07] MEDS: INSULIN REGULAR, HUMAN 100 UNIT/1 ML 3ML VIAL SQ SCH ×4 (08:07→21:30)
[2018-03-07] MEDS: CLOPIDOGREL BISULFATE 75 MG TAB PO SCH (08:14)
[2018-03-07] MEDS: GABAPENTIN 300 MG CAP PO SCH (08:14)
[2018-03-07] MEDS: METOPROLOL TARTRATE 50 MG TAB PO SCH ×2 (08:14→17:31)
[2018-03-07] MEDS: SEVELAMER CARBONATE 800 MG TAB PO SCH ×3 (08:14→17:31)
[2018-03-07] MEDS: MILRINONE LACTATE IV SCH (11:11)
[2018-03-07] MEDS: SODIUM CHLORIDE 0.9% IV SCH (11:11)
[2018-03-07] MEDS ORDERED: ALBUMIN HUMAN 12.5GM / 50ML IV PRN (13:45)
[2018-03-07] MEDS ORDERED: SODIUM CHLORIDE 0.9% 250ML 500 ML IV PRN (13:45)
[2018-03-07] MEDS ORDERED: MANNITOL 25% 12.5GM/50 ML VIAL IV PRN (13:45)
[2018-03-07 16:35] VITALS: BP 110/57
[2018-03-07] MEDS: HYDROCODONE/APAP 5MG-325MG TAB PO PRN (19:16)
[2018-03-07 19:35] VITALS: BP 107/61
[2018-03-07] MEDS: ATORVASTATIN 40 MG TAB PO SCH (21:10)
[2018-03-07] MEDS: INSULIN DETEMIR 100 UNIT/ML PEN SQ SCH (21:30)
[2018-03-07 23:40] VITALS: BP 98/52
[2018-03-08] VITALS (7 sets, daily range): BP systolic 106–135; BP diastolic 57–79
[2018-03-08] MEDS: ACETAMINOPHEN 325 MG TAB PO PRN (00:14)
[2018-03-08] MEDS: MELATONIN 5 MG TABLET PO PRN (00:14)
[2018-03-08] MEDS: HYDROMORPHONE 1MG/1ML INJ IV PRN ×2 (01:24→09:18)
[2018-03-08] MEDS: INSULIN REGULAR, HUMAN 100 UNIT/1 ML 3ML VIAL SQ SCH ×4 (07:30→21:00)
--- NOTE | 2018-03-08 08:26 | Consultation ---
DATE OF CONSULTATION: March 08, 2018 REASON FOR CONSULTATION: Foot wound with underlying diabetes. REASON FOR ADMISSION: The patient presented to the ED secondary to sustaining a fall. Found to have a femoral fracture. Found to have non-displacement of the same. Orthopedics had recommended nonoperative treatment. While in-patient, it was apparently noted that he has chronic changes to his left foot, particularly gangrenous changes. I was asked to eval. REVIEW OF SYSTEMS: An 11-point review of systems at this point are negative. PAST MEDICAL HISTORY: Diabetes, heart failure, end-stage renal disease, on hemodialysis, hypertension, peripheral neuropathy. SURGICAL HISTORY 1. Previous digit amputation, left foot. 2. Right hip prosthesis. FAMILY HISTORY: Hypertension and diabetes. SOCIAL HISTORY: Denies any alcohol, tobacco or illicit drug use. PHYSICAL EXAMINATION VITAL SIGNS: 98.4 temperature, pulse being 101, respiratory rate 17, blood pressure 106/69. GENERAL: A and O times 3. NAD. HEENT: Normocephalic, atraumatic and anicteric. ABDOMEN: Soft, nontender and nondistended. RESPIRATORY: Symmetrical expansion. No distress. PSYCHIATRIC: Normal affect. EXTREMITIES: Gangrenous changes to the distal aspect of the left great toe. It appears to be chronic. Relatively demarcated with no signs of infection per se. No fluctuance. No induration. No drainage. No tenderness upon direct palpation. IMPRESSION: Chronic digit ischemic, left foot, particularly great toe. PLAN: Recommend at this point local care, Betadine wet-to-dry dressings. Recommend vascular workup. He appears to be an angiogram candidate. He appears to be a noninvasive arterial study candidate. Ultimately, may need some level of amputation whether this is the digit versus a TMA is to be determined. In the interim, need to workup. Job#: [id number] RENU
[2018-03-08] MEDS: CLOPIDOGREL BISULFATE 75 MG TAB PO SCH (08:37)
[2018-03-08] MEDS: GABAPENTIN 300 MG CAP PO SCH (08:37)
[2018-03-08] MEDS: SEVELAMER CARBONATE 800 MG TAB PO SCH ×3 (08:37→16:45)
[2018-03-08] MEDS: METOPROLOL TARTRATE 50 MG TAB PO SCH ×2 (09:00→16:45)
[2018-03-08] MEDS: SODIUM CHLORIDE 0.9% IV SCH ×2 (12:00→22:40)
[2018-03-08] MEDS: MILRINONE LACTATE IV SCH ×2 (12:00→22:40)
[2018-03-08] MEDS: HYDROCODONE/APAP 5MG-325MG TAB PO PRN (12:10)
--- NOTE | 2018-03-08 15:12 | Diagnostic Imaging Report ---
PROCEDURE: A single AP view of the chest. COMPARISON: Patients [facility], DX, CHEST SINGLE (PORTABLE), 02/01/2016, 21:53. INDICATIONS: SHORTNESS OF BREATH FINDINGS: Lines/tubes: Right-sided central line and dialysis catheter, with distal tips projecting in the right atrium Lungs: The lungs are well-inflated. There is increased density in the left retrocardiac region with partial obscuration of the hemidiaphragm. Rest of the lungs is grossly clear. Pleura: There is no pleural effusion or pneumothorax. Heart and mediastinum: Cardiac silhouette is unremarkable. Pulmonary vasculature is normal. Bones: No acute bony abnormality. IMPRESSION: 1. findings in the left retrocardiac region may represent atelectasis or consolidation. Recommend chest PA and lateral for further evaluation. Mariusz Cochran M.D. Dictated by: Mariusz Cochran M.D. on 03/08/2018 at 15:13 Electronically approved by: Mariusz Cochran M.D. on 03/08/2018 at 15:13
[2018-03-08] MEDS: INSULIN DETEMIR 100 UNIT/ML PEN SQ SCH (21:00)
[2018-03-08] MEDS: ATORVASTATIN 40 MG TAB PO SCH (22:30)
[2018-03-09] VITALS (8 sets, daily range): BP systolic 103–144; BP diastolic 58–77
[2018-03-09] MEDS: HYDROCODONE/APAP 5MG-325MG TAB PO PRN ×3 (00:23→17:34)
[2018-03-09] MEDS ORDERED: HYDROCODONE/APAP 5MG-325MG TAB PO PRN (07:15)
[2018-03-09] MEDS: METOPROLOL TARTRATE 50 MG TAB PO SCH ×2 (08:18→17:34)
[2018-03-09] MEDS: INSULIN REGULAR, HUMAN 100 UNIT/1 ML 3ML VIAL SQ SCH ×4 (08:18→21:11)
[2018-03-09] MEDS: CLOPIDOGREL BISULFATE 75 MG TAB PO SCH (08:18)
[2018-03-09] MEDS: SEVELAMER CARBONATE 800 MG TAB PO SCH ×3 (08:18→17:34)
[2018-03-09] MEDS: GABAPENTIN 300 MG CAP PO SCH (08:18)
[2018-03-09 08:41] LABS: BASOPHILS # (AUTO) 0.1 (0.0-0.1); BASOPHILS % 0.6 % (0.0-1.0); EOSINOPHILS # (AUTO) 0.5 (0.0-0.4); EOSINOPHILS % 3.7 % (0.0-6.0); HEMATOCRIT 33.7 % (38.2-49.6); HEMOGLOBIN 10.7 g/dL (14.0-18.0); LYMPHOCYTES % 15.6 % (18.0-39.1); MEAN CORPUSCULAR HEMOGLOBIN 28.3 pg (28-32); MEAN CORPUSCULAR HGB CONC 31.8 g/dL (31-35); MEAN CORPUSCULAR VOLUME 89.2 fL (81-99); MONOCYTES # (AUTO) 0.8 (0.2-0.8); MONOCYTES % 6.1 % (4.4-11.3); NEUTROPHILS # (AUTO) 9.2 (2.1-6.9); NEUTROPHILS % 73.1 % (38.7-80.0); PLATELET COUNT 471 x10e3/uL (140-360); RED BLOOD COUNT 3.78 x10e6/uL (4.3-5.7); RED CELL DISTRIBUTION WIDTH 15.9 % (11.7-14.4)
[2018-03-09 08:59] LABS: ALBUMIN 2.4 g/dL (3.5-5.0); ALBUMIN/GLOBULIN RATIO 0.5 (0.8-2.0); ALKALINE PHOSPHATASE 86 IU/L (40-150); ANION GAP 16.4 mmol/L (8-16); BLOOD UREA NITROGEN 32 mg/dL (7-26); BUN/CREATININE RATIO 13 (6-25); CARBON DIOXIDE 25 mmol/L (22-29); CHLORIDE 102 mmol/L (98-107); CREATININE, SERUM 2.41 mg/dL (0.72-1.25); EST GLOMERULAR FILTRATION RATE 28 ML/MIN (60-); GLUCOSE 203 mg/dL (74-118); POTASSIUM 4.4 mmol/L (3.5-5.1); SODIUM 139 mmol/L (136-145)
[2018-03-09 09:00] LABS: ALANINE AMINOTRANSFERASE < 6 IU/L (0-55)
[2018-03-09] MEDS ORDERED: ACETAMINOPHEN/CODEINE 300MG - 30MG TAB PO PRN (12:30)
[2018-03-09] MEDS ORDERED: ONDANSETRON HCL 4 MG ORAL DISINTEGRATING TAB PO PRN (15:30)
[2018-03-09] MEDS: LORAZEPAM INJ 2 MG/ML VIAL IV PRN (15:32)
[2018-03-09] MEDS: SODIUM CHLORIDE 0.9% IV SCH (17:34)
[2018-03-09] MEDS: MILRINONE LACTATE IV SCH (17:34)
[2018-03-09] MEDS: ACETAMINOPHEN 325 MG TAB PO PRN (19:44)
[2018-03-09] MEDS: ATORVASTATIN 40 MG TAB PO SCH (21:09)
[2018-03-09] MEDS: MELATONIN 5 MG TABLET PO PRN (21:10)
[2018-03-09] MEDS: INSULIN DETEMIR 100 UNIT/ML PEN SQ SCH (21:11)
[2018-03-09] MEDS ORDERED: MORPHINE SULFATE 5 MG/ML VIAL IV PRN (22:00)
[2018-03-09] MEDS: MORPHINE SULFATE 2 MG/ML SYR IV PRN (22:00)
[2018-03-10] VITALS (8 sets, daily range): BP systolic 91–130; BP diastolic 53–68
[2018-03-10] MEDS: MORPHINE SULFATE 2 MG/ML SYR IV PRN ×5 (02:59→21:02)
[2018-03-10] MEDS: HYDROCODONE/APAP 5MG-325MG TAB PO PRN ×2 (05:33→10:19)
[2018-03-10] MEDS: INSULIN REGULAR, HUMAN 100 UNIT/1 ML 3ML VIAL SQ SCH ×4 (07:30→21:02)
[2018-03-10] MEDS: SEVELAMER CARBONATE 800 MG TAB PO SCH ×3 (08:00→16:28)
[2018-03-10] MEDS: METOPROLOL TARTRATE 50 MG TAB PO SCH ×2 (09:00→16:28)
[2018-03-10] MEDS: CLOPIDOGREL BISULFATE 75 MG TAB PO SCH (09:00)
[2018-03-10] MEDS: GABAPENTIN 300 MG CAP PO SCH (09:00)
[2018-03-10] MEDS: SODIUM CHLORIDE 0.9% IV SCH (12:00)
[2018-03-10] MEDS: MILRINONE LACTATE IV SCH (12:00)
[2018-03-10] MEDS: ATORVASTATIN 40 MG TAB PO SCH (21:01)
[2018-03-10] MEDS: INSULIN DETEMIR 100 UNIT/ML PEN SQ SCH (21:02)
[2018-03-11] VITALS (8 sets, daily range): BP systolic 96–135; BP diastolic 55–69
[2018-03-11] MEDS: MORPHINE SULFATE 2 MG/ML SYR IV PRN ×6 (01:03→22:18)
[2018-03-11] MEDS: INSULIN REGULAR, HUMAN 100 UNIT/1 ML 3ML VIAL SQ SCH ×4 (07:30→20:47)
[2018-03-11] MEDS: METOPROLOL TARTRATE 50 MG TAB PO SCH ×2 (07:59→16:10)
[2018-03-11] MEDS: CLOPIDOGREL BISULFATE 75 MG TAB PO SCH (09:10)
[2018-03-11] MEDS: SEVELAMER CARBONATE 800 MG TAB PO SCH ×3 (09:10→16:10)
[2018-03-11] MEDS: GABAPENTIN 300 MG CAP PO SCH (09:10)
[2018-03-11] MEDS: SODIUM CHLORIDE 0.9% IV SCH (13:38)
[2018-03-11] MEDS: MILRINONE LACTATE IV SCH (13:38)
[2018-03-11] MEDS: INSULIN DETEMIR 100 UNIT/ML PEN SQ SCH (20:47)
[2018-03-11] MEDS: ATORVASTATIN 40 MG TAB PO SCH (20:47)
[2018-03-12] VITALS (9 sets, daily range): BP systolic 94–131; BP diastolic 35–67
[2018-03-12] MEDS: MORPHINE SULFATE 2 MG/ML SYR IV PRN ×5 (03:28→21:08)
[2018-03-12 06:49] LABS: BASOPHILS # (AUTO) 0.1 (0.0-0.1); BASOPHILS % 0.4 % (0.0-1.0); EOSINOPHILS # (AUTO) 0.4 (0.0-0.4); EOSINOPHILS % 2.6 % (0.0-6.0); HEMATOCRIT 30.9 % (38.2-49.6); HEMOGLOBIN 9.7 g/dL (14.0-18.0); LYMPHOCYTES # (AUTO) 2.3 (1.0-3.2); LYMPHOCYTES % 16.6 % (18.0-39.1); MEAN CORPUSCULAR HEMOGLOBIN 27.8 pg (28-32); MEAN CORPUSCULAR HGB CONC 31.4 g/dL (31-35); MEAN CORPUSCULAR VOLUME 88.5 fL (81-99); MONOCYTES # (AUTO) 1.1 (0.2-0.8); MONOCYTES % 7.9 % (4.4-11.3); NEUTROPHILS # (AUTO) 9.7 (2.1-6.9); PLATELET COUNT 514 x10e3/uL (140-360); RED BLOOD COUNT 3.49 x10e6/uL (4.3-5.7); RED CELL DISTRIBUTION WIDTH 15.4 % (11.7-14.4)
[2018-03-12] MEDS: INSULIN REGULAR, HUMAN 100 UNIT/1 ML 3ML VIAL SQ SCH ×4 (07:30→20:24)
[2018-03-12 07:39] LABS: ANION GAP 14.2 mmol/L (8-16); CALCIUM 8.8 mg/dL (8.4-10.2); CREATININE, SERUM 2.28 mg/dL (0.72-1.25); POTASSIUM 4.2 mmol/L (3.5-5.1)
[2018-03-12] MEDS: SEVELAMER CARBONATE 800 MG TAB PO SCH ×3 (08:21→17:08)
[2018-03-12] MEDS: METOPROLOL TARTRATE 50 MG TAB PO SCH ×2 (08:22→16:48)
[2018-03-12] MEDS: CLOPIDOGREL BISULFATE 75 MG TAB PO SCH (08:23)
[2018-03-12] MEDS: GABAPENTIN 300 MG CAP PO SCH (08:23)
[2018-03-12] MEDS: HYDROCODONE/APAP 5MG-325MG TAB PO PRN (11:09)
[2018-03-12] MEDS ORDERED: CITRATE OF MAGNESIA 300ML BOTTLE PO STA (11:56)
[2018-03-12] MEDS ORDERED: DOCUSATE SODIUM 100 MG CAP PO ONE ×2 (12:00→12:45)
[2018-03-12] MEDS: SODIUM CHLORIDE 0.9% IV SCH (12:54)
[2018-03-12] MEDS: MILRINONE LACTATE IV SCH (12:54)
[2018-03-12] MEDS: INSULIN DETEMIR 100 UNIT/ML PEN SQ SCH (20:24)
[2018-03-12] MEDS: ATORVASTATIN 40 MG TAB PO SCH (20:30)
[2018-03-13] VITALS: BP 117/57
[2018-03-13] MEDS: MORPHINE SULFATE 2 MG/ML SYR IV PRN ×4 (01:08→17:51)
[2018-03-13] MEDS: ACETAMINOPHEN 325 MG TAB PO PRN (02:44)
[2018-03-13 04:00] VITALS: BP 118/58
[2018-03-13 07:45] VITALS: BP 139/74
[2018-03-13] MEDS ORDERED: HYDROCODONE/APAP 5MG-325MG TAB PO PRN (08:00)
[2018-03-13] MEDS ORDERED: DOCUSATE SODIUM 100 MG CAP PO SCH (09:00)
[2018-03-13] MEDS: INSULIN REGULAR, HUMAN 100 UNIT/1 ML 3ML VIAL SQ SCH ×3 (09:15→16:00)
[2018-03-13] MEDS: SEVELAMER CARBONATE 800 MG TAB PO SCH ×3 (09:15→16:40)
[2018-03-13] MEDS: METOPROLOL TARTRATE 50 MG TAB PO SCH ×2 (09:15→16:02)
[2018-03-13] MEDS: GABAPENTIN 300 MG CAP PO SCH (09:15)
[2018-03-13] MEDS: CLOPIDOGREL BISULFATE 75 MG TAB PO SCH (09:15)
[2018-03-13 09:37] VITALS: BP 139/74
[2018-03-13] MEDS ORDERED: APIXAB 2.5 MG TABLET PO STA (11:05)
[2018-03-13] MEDS ORDERED: TYLENOL WITH C1 EACH PO (11:18)
[2018-03-13] MEDS ORDERED: ELIQUIS PO (11:19)
[2018-03-13 12:00] VITALS: BP 103/53
[2018-03-13] MEDS: MILRINONE LACTATE IV SCH (12:45)
[2018-03-13] MEDS: SODIUM CHLORIDE 0.9% IV SCH (12:45)
--- NOTE | 2018-03-13 15:21 | Discharge Summary ---
FINAL DISCHARGE DIAGNOSES 1. Mechanical fall status post right femur subcapsular fracture. 2. End-stage renal disease, on hemodialysis. 3. Acute exacerbation of congestive heart failure with systolic dysfunction. 4. Type 2 diabetes. 5. Medically debilitated. 6. Right big toe dry gangrene. 7. Medical noncompliance. CONSULTANTS: We had Nephrology, Cardiology, Podiatry, and Electrophysiology. VITAL SIGNS: Temperature is 99, pulse 108, respiratory rate is 18, oxygen saturation 96% on room air. LAB FINDINGS: Show white count of 13, hemoglobin 9.7, hematocrit 31, platelets of 514. Chemistry: Sodium 141, potassium was 4.4, bicarb 23, chloride is 108, BUN is 38, anion gap of 14, creatinine is 2.2, calcium is 8.8. LFTs were normal. Troponin negative. Albumin 2.4. Urinalysis was negative. Hepatitis panel negative. MICROBIOLOGY: None. IMAGING STUDIES: Hip x-ray shows a right hip prosthesis. Vague cortical discontinuity laterally could represent nondisplaced fracture. Femur x-ray shows a nondisplaced fracture of the proximal femoral cortex. Then repeat hip x-ray shows an acute nondisplaced lateral cortical fracture of the proximal femur. 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 Chest x-ray shows some evidence of atelectasis. HOSPITAL COURSE: Patient is a 52-year-old male who has multiple comorbidities including severe heart failure on a milrinone drip, end-stage renal disease on dialysis, type 2 diabetes, medical noncompliance and medically debilitated. Came in after having a mechanical fall and was found to have a nondisplaced right femur fracture. Orthopedics was consulted and recommended touch-down weightbearing for 2 months. PT and OT worked with the patient while he was here. They recommended snf facility. We were in the process of working on arranging HD with his snf facility, but the patient has been here for a significant number of days in which the patient and family have gotten frustrated and wanted to be discharged home. I spoke with him and I have reiterated the importance of going to snf, but he still is adamant about being discharged. The patient will be discharged home with home health, home PT and OT. Notified both Case Management in the hospital as well as [facility]. I also communicated with his primary care physician. Patient also received hemodialysis by Nephrology while here in the hospital. He required a significant amount of pain control and will be discharged on pain medication. Cardiology was consulted due to his underlying heart failure and also management of milrinone drip. At this time, per Cardiology the patient is to continue with the milrinone drip at home, and he currently has a pump for. We also had EP, which recommended continuing with the LifeVest for now and outpatient followup with Electrophysiology in 2 to 3 weeks. Patient was discharged with the LifeVest and will continue with milrinone drip that he is on at home already. Patient also had a right big toe dry gangrene, in which Podiatry was consulted. Patient will need outpatient lower extremity arteriogram at a later date. He also is to follow up with Dr. Mccartney as an outpatient in 1 week and will just need local wound care. At this time, patient was stable with no other issues. Patient demanded to be discharged and does not want to go to a snf facility. He will be discharged on home PT and OT and wound care. On the day of discharge, vital signs stable, labs reviewed and stable. Patient seen and evaluated and examined thoroughly on the day of discharge with no other complaints. Patient verbalized understanding and agreed with the plan of care to follow up accordingly with the consultants as described above in the next 1 to 2 weeks. MEDICATIONS: See med reconciliation form including Tylenol No. 4 one to two tabs every 4 hours p.r.n. for pain. Quantity, 40 tablets were given to the patient. CONDITION: Stable. DISPOSITION: To home with home health, home PT and OT and wound care. DIET: Heart-healthy renal. FOLLOWUP: With the appropriate consultants as described above, especially Podiatry in the next 1 to 2 weeks, Dr. 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 Also follow up with his normal HD schedule time and date. In the event of any worsening symptoms, the patient advised to come back to the ED for further evaluation. Discharge summary took greater than 35 minutes. CORNELIUS MARTÍNEZ MD Job#: [id number] EV
[2018-03-13 16:02] VITALS: BP 96/55
== END 2018-03-13 19:04 | disposition home or self-care (01) | DRG 533 ==
LOC: ER 14:35 → ERHOLD 17:19 → IMCU 17:21 → OBSVTOIN 03-06 18:14 → IMCU 03-06 22:55 → MED/SURG 03-08 17:23
PROVIDERS: ADMIT Internal Medicine; ATTEND Internal Medicine
PROC: 5A1D70Z Performance of Urinary Filtration, Intermittent, Less than 6 Hours Per Day (ICD-10-PCS; principal; 2018-03-05)
DX: S72.8X1A Other fracture of right femur, initial encounter for closed fracture (principal); I50.23 Acute on chronic systolic (congestive) heart failure; N18.6 End stage renal disease; M97.01XA Periprosthetic fracture around internal prosthetic right hip joint, initial encounter; I13.2 Hypertensive heart and chronic kidney disease with heart failure and with stage 5 chronic kidney disease, or end stage renal disease; E11.52 Type 2 diabetes mellitus with diabetic peripheral angiopathy with gangrene; I96 Gangrene, not elsewhere classified; W01.0XXA Fall on same level from slipping, tripping and stumbling without subsequent striking against object, initial encounter; E11.22 Type 2 diabetes mellitus with diabetic chronic kidney disease; Z99.2 Dependence on renal dialysis; I25.2 Old myocardial infarction; Z95.5 Presence of coronary angioplasty implant and graft; Z79.01 Long term (current) use of anticoagulants; Z72.0 Tobacco use; I25.10 Atherosclerotic heart disease of native coronary artery without angina pectoris; D63.1 Anemia in chronic kidney disease; Z79.4 Long term (current) use of insulin
CPT/HCPCS: 36415; 71045; 80048; 80053; 81001; 82550; 82553; 82948; 83880; 84484; 85025; 85610; 85730; 86704; 86707; 87340; 87350; 90962; 93005; 93306; 93925; 96372; 97139; 99284; G0378; J1170; J1644; J2060; J2260; J2270; J2405; J7030

== ENCOUNTER 2018-04-02 | Emergency (ER) | payer OTHER ==
[~2018-04-02] VITALS: Ht 170.2 cm; Wt 58.1 kg
[~2018-04-02] MED LIST changes: +ELIQUIS PO; +MILRINONE L1 MG/1 ML IV
--- OUTSIDE RECORDS SUMMARY | 2018-04-02 00:03 | XMS REPORT | Continuity of Care Document ---
Author Author [facility] Organization [facility] Address [address] [place] [address] Phone Unavailable Care Team Providers Care Appraiser [employer] Name Role Phone TED WATTS MD PCP Insurance Providers Guarantor Petr Winter Address [address] [address] Email NONE Payer [facility] [employer] Policy Number [id number] Subscriber's Name Petr Winter Relationship 18 Self / Same As Patient Group Number [id number] Group Name [employer] - Medicare Advantage Divis Effective Date 18 Advance Directives Directive Response Recorded Date/Time Does the patient have an advance directive? No 03/04/18 7:56pm If yes, is advance directive on file with [facility]? No 06/11/16 4:18pm If not on file with [facility] will patient provide a copy? Yes 06/11/16 4:18pm Do you have a Directive to Physician? No 03/04/18 4:08pm Do you have a Medical Power of Lead Ruby On Rails Developer? No 03/04/18 4:08pm Do you have an out of hospital Do Not Resuscitate Order? No 03/04/18 4:08pm Do you have any special needs we should be aware of? No 03/04/18 4:08pm Do you have a support person here with you today? Yes 03/04/18 4:08pm Did patient receive Notice of Privacy Practices? Yes 03/04/18 4:08pm Did patient receive patient rights and responsibilities? Yes 03/04/18 4:08pm Problems Medical Problem Onset Date Status Cellulitis 02/02/2016 Acute Femoral neck fracture 09/29/2015 Acute Gangrene 02/02/2016 Acute Peripheral arterial occlusive disease 02/02/2016 Acute Renal insufficiency 02/02/2016 Acute Medications Current Home Medications Medication Dose Units Route Directions Days Qty Instructions Start Date Acetaminophen With Codeine (Tylenol With Codeine #3 Tablet) 1 Each Tablet 1-2 Tab Oral Every 4 Hours as needed for Pain Atorvastatin Calcium 20 Mg Tablet 80 Mg Oral Today At 9:00PM Clopidogrel Bisulfate (Clopidogrel) 75 Mg Tablet 75 Mg Oral Daily 30 Tab Eliquis 2.5 Mg Oral Every 12 Hours 30 Days Ferrous Sulfate 325 Mg Tablet 1 Tab Oral Twice A Day Gabapentin 400 Mg Capsule 600 Mg Oral Daily 30 Cap Insulin Glargine (Lantus) 100 Units/Ml Ml 30 Units Sub-Q Bedtime Metoprolol Tartrate 50 Mg Tablet 50 Mg Oral Twice A Day Milrinone Lactate 1 Mg/1 Ml Vial 2.4 Ml Intraven Past Home Medications Medication Directions Ordered Status Acetaminophen With Codeine (Tylenol With Codeine #3 Tablet) 1 Each Tablet, 300 Mg Oral Every 4 Hours Discontinued Amitriptyline Hcl 100 Mg Tablet, 100 Mg Oral Bedtime Discontinued Carisoprodol (Soma) 350 Mg Tablet, 350 Mg Oral Three Times A Day as needed for Pain Discontinued Cefepime Hcl/D5w (Cefepime-Dextrose 1 Gm/50 Ml) 1 Gm/50 Ml Piggyback, 2 Gm Iv Push Daily Discontinued Clonazepam (Klonopin) 1 Mg Tablet, 1 Mg Oral Daily as needed for Anxiety Discontinued Lisinopril 10 Mg Tablet, 20 Mg Oral Daily Discontinued Lisinopril 10 Mg Tablet, 20 Mg Oral Daily Discontinued Tramadol Hcl (Ultram) 50 Mg Tablet, 50 Mg Oral Twice A Day as needed for Pain Discontinued Vancomycin Hcl 1 Gm Vial, 1500 Mg Intraven Daily Discontinued Social History Social History Problem Response Recorded Date/Time Onset Date Status Hx Psychiatric Problems No 03/04/2018 7:56pm Not Applicable Not Applicable Hx Eating Disorder Yes 03/04/2018 7:56pm Not Applicable Not Applicable Hx Substance Use Disorder No 03/04/2018 7:56pm Not Applicable Not Applicable Hx Depression No 03/04/2018 7:56pm Not Applicable Not Applicable Hx Alcohol Use No 03/04/2018 7:56pm Not Applicable Not Applicable Hx Substance Use Treatment No 03/04/2018 7:56pm Not Applicable Not Applicable Hx Physical Abuse No 03/04/2018 7:56pm Not Applicable Not Applicable Smoking Status Start Date Stop Date Current every day smoker Hospital Discharge Instructions No hospital discharge instruction information available. Plan of Care Discharge Date 03/13/18 7:04pm Disposition HOME, SELF-CARE Instructions/Education Provided Diabetes and Diet Fractures Prescriptions See Medication Section Referrals KRISTINA GARCIA MD (Cardiology) Order Date: 2 Weeks Entered Date: 03/13/2018 11:21am Address: [address] [place] [address] [address] [place] [address] CONSUELO BELCHER MD (Orthopedic) Order Date: 2 Weeks Entered Date: 03/13/2018 11:21am Address: [address] [place] [address] SABINE CHARLES DPM (Podiatry) Order Date: 1 Week Entered Date: 03/13/2018 11:22am Address: [address] [place] [address] Additional Instructions/Education FOLLOW UP WITH DR. BELCHER IN 2 WEEKS. CALL [phone] TO SCHEDULE AN APPOINTMENT NO WEIGHT BEARING ON RIGHT LOWER EXTREMITY FOR 2 MONTHS (STARTING 03/05/18) FOLLOW UP WITH CARDIOLOGY IN 2 WEEKS, PRIMARY CARE PROVIDER IN 2-5 DAYS, PODIATRY IN 1 WEEK RESUME NORMAL HEMODIALYSIS SCHEDULE CONTINUE RENAL DIABETIC DIET Functional Status Query Response Date Recorded FUNCTIONAL STATUS . March 07, 2018 4:04pm Assistive Devices Standard Walker March 04, 2018 8:08pm Ambulation Ability Independent March 04, 2018 8:08pm Toileting Ability Independent March 13, 2018 6:00pm Allergies, Adverse Reactions, Alerts No known allergies. Immunizations No immunization information available. Vital Signs Acute Vital Signs Vital Response Date/Time Temperature (Fahrenheit) 96.0 degrees F (97.6 - 99.5) 03/13/2018 4:02pm Pulse Pulse Rate (adult) 101 bpm (60 - 90) 03/13/2018 4:02pm Respiratory Rate 18 bpm (12 - 24) 03/13/2018 4:02pm Blood Pressure 96/55 mm Hg 03/13/2018 4:02pm Height 5 ft 7 in 03/04/2018 2:20pm Weight 128.13 lb 03/13/2018 4:00am Body Mass Index 20.1 kg/m^2 03/13/2018 4:00am Results Laboratory Results Test Name Result Units Flags Reference Collection Date/Time Result Date/ Time Comments White Blood Count 13.52 x10e3/uL H 4.8-10.8 03/12/2018 6:30am 2017 6:52am Red Blood Count 3.49 x10e6/uL L 4.3-5.7 03/12/2018 6:30am 03/12/2018 6: 52am Hemoglobin 9.7 g/dL L 14.0-18.0 03/12/2018 6:30am 03/12/2018 6:52am Hematocrit 30.9 % L 38.2-49.6 03/12/2018 6:30am 03/12/2018 6:52am Mean Corpuscular Volume 88.5 fL 81-99 03/12/2018 6:30am 03/12/2018 6: 52am Mean Corpuscular Hemoglobin 27.8 pg L 28-32 03/12/2018 6:30am 2017 6:52am Mean Corpuscular Hemoglobin Concent 31.4 g/dL 31-35 03/12/2018 6:30am 03/12/2018 6:52am Red Cell Distribution Width 15.4 % H 11.7-14.4 03/12/2018 6:30am 2017 6:52am Platelet Count 514 x10e3/uL H 140-360 03/12/2018 6:30am 03/12/2018 6: 52am Neutrophils (%) (Auto) 72.0 % 38.7-80.0 03/12/2018 6:30am 03/12/2018 6: 52am Lymphocytes (%) (Auto) 16.6 % L 18.0-39.1 03/12/2018 6:30am 03/12/2018 6 :52am Monocytes (%) (Auto) 7.9 % 4.4-11.3 03/12/2018 6:30am 03/12/2018 6: 52am Eosinophils (%) (Auto) 2.6 % 0.0-6.0 03/12/2018 6:30am 03/12/2018 6: 52am Basophils (%) (Auto) 0.4 % 0.0-1.0 03/12/2018 6:30am 03/12/2018 6:52am IM GRANULOCYTES % 0.5 % 0.0-1.0 03/12/2018 6:30am 03/12/2018 6:52am Neutrophils # (Auto) 9.7 H 2.1-6.9 03/12/2018 6:30am 03/12/2018 6: 52am Lymphocytes # (Auto) 2.3 1.0-3.2 03/12/2018 6:30am 03/12/2018 6:52am Monocytes # (Auto) 1.1 H 0.2-0.8 03/12/2018 6:30am 03/12/2018 6:52am Eosinophils # (Auto) 0.4 0.0-0.4 03/12/2018 6:30am 03/12/2018 6:52am Basophils # (Auto) 0.1 0.0-0.1 03/12/2018 6:30am 03/12/2018 6:52am Absolute Immature Granulocyte (auto 0.07 x10e3/uL 0-0.1 03/12/2018 6: 30am 03/12/2018 6:52am Prothrombin Time 15.7 seconds H 11.9-14.5 03/05/2018 6:05am 03/05/2018 6 :54am Prothromb Time International Ratio 1.35 03/05/2018 6:05am 2017 6:54am Oral Anticoagulant Therapy INR Values: 1. Low Intensity Therapy 1.5 - 2.0 2. Moderate Intensity Therapy 2.0 - 3.0 3. High Intensity Therapy(1) 2.5 - 3.5 4. High Intensity Therapy(2) 3.0 - 4.0 5. Panic Value INR > 5.0 Activated Partial Thromboplast Time 38.6 seconds H 23.8-35.5 03/05/2018 6 :05am 03/05/2018 6:54am Urine Color YELLOW YELLOW 03/06/2018 2:2503/06/2018 3:14am Urine Clarity CLEAR CLEAR 03/06/2018 2:2503/06/2018 3:14am Urine Specific [place] 1.020 1.010-1.025 03/06/2018 2:252017 3:14am Urine pH 6 5 - 7 03/06/2018 2:2503/06/2018 3:14am Urine Leukocyte Esterase NEGATIVE NEGATIVE 03/06/2018 2:252017 3:14am Urine Nitrite NEGATIVE NEGATIVE 03/06/2018 2:2503/06/2018 3:14am Urine Protein 2+ H NEGATIVE 03/06/2018 2:2503/06/2018 3:14am Urine Glucose (UA) 2+ H NEGATIVE 03/06/2018 2:2503/06/2018 3:14am Urine Ketones NEGATIVE NEGATIVE 03/06/2018 2:2503/06/2018 3:14am Urine Urobilinogen 0.2 mg/dL 0.2 - 1 03/06/2018 2:2503/06/2018 3: 14am Urine Bilirubin NEGATIVE NEGATIVE 03/06/2018 2:2503/06/2018 3: 14am Urine Blood NEGATIVE NEGATIVE 03/06/2018 2:2503/06/2018 3:14am Urine WBC 0-5 /HPF 0-5 03/06/2018 2:2503/06/2018 3:14am Urine RBC 0-5 /HPF 0-5 03/06/2018 2:2503/06/2018 3:14am Urine Bacteria RARE /HPF NONE 03/06/2018 2:2503/06/2018 3:14am Urine Epithelial Cells RARE /LPF NONE 03/06/2018 2:2503/06/2018 3: 14am Urine Yeast FEW H NONE 03/06/2018 2:2503/06/2018 3:14am Sodium Level 141 mmol/L 136-145 03/12/2018 6:30am 03/12/2018 7:44am Potassium Level 4.2 mmol/L 3.5-5.1 03/12/2018 6:30am 03/12/2018 7:44am Chloride Level 108 mmol/L H 98-107 03/12/2018 6:30am 03/12/2018 7:44am Carbon Dioxide Level 23 mmol/L 22-29 03/12/2018 6:30am 03/12/2018 7: 44am Anion Gap 14.2 mmol/L 8-16 03/12/2018 6:30am 03/12/2018 7:44am Blood Urea Nitrogen 38 mg/dL H 7-03/12/2018 6:30am 03/12/2018 7:44am Creatinine 2.28 mg/dL H 0.72-1.25 03/12/2018 6:30am 03/12/2018 7:44am BUN/Creatinine Ratio 17 6-03/12/2018 6:30am 03/12/2018 7:44am Estimat Glomerular Filtration Rate 30 ML/MIN L 60- 03/12/2018 6:30am 7:44am Ranges were taken from the National Kidney Disease Education Program and the National Kidney Foundation literature. Reference ranges: 60 or greater: Normal 16-59 (for 3 consecutive months): Chronic kidney disease 15 or less: Kidney failure Glucose Level 46 mg/dL *L 74-118 03/12/2018 6:30am 03/12/2018 7:44am Results called to SONY Mcghee RN at 0743 on 03/12/18 by Elvin Lemus. RB OK. This test has been rerun and double checked for accuracy. Calcium Level 8.8 mg/dL 8.4-10.2 03/12/2018 6:30am 03/12/2018 7:44am Bedside Glucose 140 mg/dL H 70-120 03/13/2018 4:38pm 03/13/2018 4:47pm Meter ID: [id number] Total Bilirubin 0.3 mg/dL 0.2-1.2 03/09/2018 8:29am 03/09/2018 9:00am Aspartate Amino Transf (AST/SGOT) 11 IU/L 5-34 03/09/2018 8:29am 2017 9:00am Alanine Aminotransferase (ALT/SGPT) < 6 IU/L 0-55 03/09/2018 8:29am 9:00am Total Protein 7.1 g/dL 6.5-8.1 03/09/2018 8:29am 03/09/2018 9:00am Albumin 2.4 g/dL L 3.5-5.0 03/09/2018 8:29am 03/09/2018 9:00am Globulin 4.7 g/dL H 2.3-3.5 03/09/2018 8:29am 03/09/2018 9:00am Albumin/Globulin Ratio 0.5 L 0.8-2.0 03/09/2018 8:29am 03/09/2018 9: 00am Alkaline Phosphatase 86 IU/L 40-150 03/09/2018 8:29am 03/09/2018 9: 00am B-Type Natriuretic Peptide 872.7 pg/mL H 0-100 03/06/2018 5:13am 2017 9:41am Creatine Kinase 41 IU/L 30-200 03/04/2018 2:48pm 03/04/2018 3:36pm Creatine Kinase MB 2.00 ng/mL 0-5.0 03/04/2018 2:48pm 03/04/2018 3: 36pm Troponin I 0.193 ng/mL 0-0.300 03/04/2018 2:48pm 03/04/2018 3:36pm Hepatitis Be Antibody Negative Negative 03/05/2018 4:19pm 03/09/2018 8:34am Performed at: [facility] [id number] Anodizer: Blade Cota MD, Phone: [phone] Hepatitis Be Antigen Negative Negative 03/05/2018 4:19pm 03/07/2018 6 :16am Hepatitis B Core Total Antibody Negative Negative 03/05/2018 4:19pm 03/07/2018 6:16am Performed at: [facility] [id number] Anodizer: Reji Figueroa MD, Phone: [phone] Hepatitis B Surface Antigen Negative Negative 03/12/2018 4:00pm 03/13 6:19am Performed at: [facility] [id number] Anodizer: Reji Figueroa MD, Phone: [phone] Procedures No procedure information available. Encounters Encounter Location Arrival/Admit Date Discharge/Depart Date Attending Provider Discharged Inpatient [facility] 03/06/18 6:14pm 03/13/18 7:04pm CORNELIUS MARTÍNEZ MD
[2018-04-02] MEDS ORDERED: NITROGLYCERIN 2% OINT 1 GM PKT ONE (00:15)
[2018-04-02] MEDS ORDERED: FUROSEMIDE INJ 10 MG/ML 4 ML VIAL ONE (00:15)
[2018-04-02 00:40] LABS: BASOPHILS # (AUTO) 0.2 (0.0-0.1); EOSINOPHILS # (AUTO) 0.6 (0.0-0.4); EOSINOPHILS % 3.4 % (0.0-6.0); HEMATOCRIT 39.3 % (38.2-49.6); LYMPHOCYTES # (AUTO) 3.9 (1.0-3.2); MEAN CORPUSCULAR HEMOGLOBIN 26.2 pg (28-32); MEAN CORPUSCULAR HGB CONC 30.5 g/dL (31-35); MEAN CORPUSCULAR VOLUME 85.8 fL (81-99); MONOCYTES # (AUTO) 0.9 (0.2-0.8); MONOCYTES % 5.4 % (4.4-11.3); NEUTROPHILS # (AUTO) 10.8 (2.1-6.9); NEUTROPHILS % 65.5 % (38.7-80.0); PLATELET COUNT 601 x10e3/uL (140-360); RED BLOOD COUNT 4.58 x10e6/uL (4.3-5.7); RED CELL DISTRIBUTION WIDTH 16.7 % (11.7-14.4)
[2018-04-02 00:45] LABS: INR 1.28
[2018-04-02 00:46] LABS: PARTIAL THROMBOPLASTIN TIME 32.5 seconds (23.8-35.5)
--- NOTE | 2018-04-02 00:54 | Diagnostic Imaging Report ---
CHEST SINGLE (PORTABLE), 04/02/2018 12:17 AM Technique: CHEST SINGLE (PORTABLE) Comparison: 03/08/2018 Clinical history: Respiratory distress Findings: See Impression Impression: 1. Lines/Tubes: Stable right dialysis catheter over the right atrium and additional central venous catheter over the cavoatrial junction. 2. Stable to slight increase in mildly enlarged cardiac silhouette. 3. Diffuse pulmonary opacities, likely edema, with subsegmental bibasilar atelectasis and small effusions. Signed by: Dr Yaneth Crawford MD on 04/02/2018 12:50 AM
[2018-04-02 00:56] LABS: ALBUMIN 2.7 g/dL (3.5-5.0); ALBUMIN/GLOBULIN RATIO 0.6 (0.8-2.0); CALCIUM 8.8 mg/dL (8.4-10.2); CREATININE, SERUM 2.61 mg/dL (0.72-1.25); MAGNESIUM 1.5 MG/DL (1.3-2.1)
[2018-04-02] MEDS ORDERED: CYCLOBENZAPRINE10 MG PO (01:15)
[2018-04-02] MEDS ORDERED: RENVELA PO (01:15)
[2018-04-02] MEDS ORDERED: LISINOPRIL10 MG PO (01:15)
[2018-04-02] MEDS ORDERED: PANTOPRAZOLE SO40 MG PO (01:15)
[2018-04-02] MEDS ORDERED: AMITRIPTYLINE H50 MG PO (01:15)
[2018-04-02] MEDS ORDERED: GABAPENTIN100 MG PO (01:15)
[2018-04-02] MEDS ORDERED: CARVEDILOL3.125 MG PO (01:15)
[2018-04-02] MEDS ORDERED: VANCOMYCIN 1GM/NS 250 ML 250 ML IV STA (01:20)
[2018-04-02] MEDS ORDERED: CEFEPIME HCL 2 GM VIAL IV STA (01:20)
[2018-04-02 01:25] LABS: CREATINE KINASE MB 2.3 ng/mL (0-5.0)
[2018-04-02 03:24] LABS: B-TYPE NATRIURETIC PEPTIDE2 2803.9 pg/mL (0-100)
== END 2018-04-02 03:18 | disposition other institution (70) ==
LOC: ER
DX: J96.01 Acute respiratory failure with hypoxia (principal); I50.23 Acute on chronic systolic (congestive) heart failure; I27.9 Pulmonary heart disease, unspecified; I25.10 Atherosclerotic heart disease of native coronary artery without angina pectoris; I12.0 Hypertensive chronic kidney disease with stage 5 chronic kidney disease or end stage renal disease; E11.22 Type 2 diabetes mellitus with diabetic chronic kidney disease; N18.6 End stage renal disease; Z99.2 Dependence on renal dialysis
CPT/HCPCS: 36415; 71045; 80053; 82550; 82553; 83605; 83735; 83880; 84484; 85025; 85610; 85730; 87040; 93005; 94660 ×2; 99284; J0692; J1940; J3370

== ENCOUNTER 2018-10-22 20:54 | Emergency (ER) | payer OTHER ==
[~2018-10-22] VITALS: Ht 170.2 cm; Wt 58.1 kg
[~2018-10-22 20:54] MED LIST changes: +AMITRIPTYLINE H50 MG PO; +CARVEDILOL3.125 MG PO; +CYCLOBENZAPRINE10 MG PO; +GABAPENTIN100 MG PO; +PANTOPRAZOLE SO40 MG PO; +RENVELA PO
--- OUTSIDE RECORDS SUMMARY | 2018-10-22 20:58 | XMS REPORT ---
Author Author [facility] Address Unknown Phone Unavailable Care Team Providers Care Art Instructor Name Role Phone UNKNOWN, REFFERING PP Unavailable SWEET, A LAIRD Unavailable Unavailable DAHU, S JIRIES Unavailable Unavailable BADAR, SERGIO Unavailable Unavailable Problems This patient has no known problems. Allergies, Adverse Reactions, Alerts This patient has no known allergies or adverse reactions. Medications This patient has no known medications. Encounters Start Date/Time End Date/Time Encounter Type Admission Type Attending [facility] Care Department Encounter ID 2017-05-07 00:00:00 2017-05-07 00:00:00 Outpatient [facility] [id number] Results Test Description Test Time Test Comments Text Results Atomic Results Result Comments POC Glucose, Blood 2017-05-11 11:11:00 POC Glucose (test code=POCGLUC) 208 mg/dL 70-115 If you consider your patient critically ill, the Irene Accu-Chek InformII metershould not be used for Glucose determinations.Draw a venous Glucose and send to the Main Lab for Analysis. POC Glucose, [id number] 07:26:00* Test Item Value Reference Range Comments POC Glucose (test code=POCGLUC) 154 mg/dL 70-115 If you consider your patient critically ill, the Irene Accu-Chek InformII metershould not be used for Glucose determinations.Draw a venous Glucose and send to the Main Lab for Analysis. Basic Metabolic Liucv6559-92-10 06:29:00* Test Item Value Reference Range Comments [...] race is not provided, and the patient isAfrican-Fijian, multiply by 1.212. If sex is not provided, and thepatient is female, multiply by 0.742. Results for patients <18 years ofage have not been validated by the MDRD study and should be interpretedwith caution.eGFR Result Interpretation:eGFR > or=60 is in the Normal RangeeGFR < 60 may mean kidney diseaseeGFR < 15 may mean kidney failureRanges recommended by the National Kidney Foundat ion,http://nkdep.nih.gov Uzqurexl4640-82-00 06:00:00* Test Item Value Reference Range Comments [...] MPV (test code=MPV) 9.8 fL RBC, Crossmatch [id number] 06:00:00* Test Item Value Reference Range Comments Product 1 Code (test code=PRODCODE1) E4532 Unit 1 ID (test code=UNITID1) [id number] Unit 1 ABO (test code=UNITABO1) A Unit 1 Rh (test code=UNITRH1) NEG Unit 1 Interp (test code=UNITINTERP1) Compatible Unit 1 Status (test code=UNITSTAT1) PT Product 2 Code (test code=PRODCODE2) E4532 Unit 2 ID (test code=UNITID2) [id number] Unit 2 ABO (test code=UNITABO2) O Unit 2 Rh (test code=UNITRH2) NEG Unit 2 Interp (test code=UNITINTERP2) Compatible Unit 2 Status (test code=UNITSTAT2) PT Product 3 Code (test code=PRODCODE3) E0336 Unit 3 ID (test code=UNITID3) [id number] Unit 3 ABO (test code=UNITABO3) A Unit 3 Rh (test code=UNITRH3) NEG Unit 3 Interp (test code=UNITINTERP3) Compatible Unit 3 Status (test code=UNITSTAT3) PT Product 4 Code (test code=PRODCODE4) E0336 Unit 4 ID (test code=UNITID4) [id number] Unit 4 ABO (test code=UNITABO4) A Unit 4 Rh (test code=UNITRH4) NEG Unit 4 Interp (test code=UNITINTERP4) Compatible Unit 4 Status (test code=UNITSTAT4) PT POC Glucose, Zvcez1544-76-43 20:13:00* Test Item Value Reference Range Comments POC Glucose (test code=POCGLUC) 170 mg/dL 70-115 If you consider your patient critically ill, the Irene Accu-Chek InformII metershould not be used for Glucose determinations.Draw a venous Glucose and send to the Main Lab for Analysis. POC Glucose, Mwurf2392-44-55 16:15:00* Test Item Value Reference Range Comments POC Glucose (test code=POCGLUC) 275 mg/dL 70-115 Notify RN or MDIf you consider your patient critically ill, the Irene Accu-Chek InformII metershould not be used for Glucose determinations.Draw a venous Glucose and send to the Main Lab for Analysis. POC Glucose, Vsipy7343-90-38 14:36:00* Test Item Value Reference Range Comments POC Glucose (test code=POCGLUC) 294 mg/dL 70-115 Notify RN or MDIf you consider your patient critically ill, the Irene Accu-Chek InformII metershould not be used for Glucose determinations.Draw a venous Glucose and send to the Main Lab for Analysis. Comprehensive Metabolic Rezzg7427-36-96 10:35:00* Test Item Value Reference Range Comments [...] race is not provided, and the patient isAfrican-Fijian, multiply by 1.212. If sex is not provided, and thepatient is female, multiply by 0.742. Results for patients <18 years ofage have not been validated by the MDRD study and should be interpretedwith caution.eGFR Result Interpretation:eGFR > or=60 is in the Normal RangeeGFR < 60 may mean kidney diseaseeGFR < 15 may mean kidney failureRanges recommended by the National Kidney Foundat ion,http://nkdep.nih.gov CK Jvuei0981-94-72 10:34:00* Test Item Value Reference Range Comments CK (test code=CK) 155 U/L 39-308 CK [id number] 10:34:00* Test Item Value Reference Range Comments CK (test code=CK) 155 U/L 39-308 CKMB (test code=CKMB) 3.6 ng/mL 0.0-4.9 CKMB% (test code=CKMBP) 2.3 % 0.0-3.4 Uawocmvn2449-48-32 08:33:00* Test Item Value Reference Range Comments WBC (test code=WBC) 11.0 K/cumm 4.4-10.5 RBC (test code=RBC) 3.22 M/cumm 4.10-5.70 Hemoglobin (test code=HGB) 9.7 gm/dL 13.4-17.4 READ BACK LAB VALUESVERIFIED BY REPEAT TESTINGCalled to Ari Rendon RN at 0830 05/10/2017. Blood transfusion. DD Hematocrit (test code=HCT) 29.8 % 38.7-52.0 MCV (test code=MCV) 92.4 fL 80-100 MCH (test code=MCH) 30.1 pg 27.0-32.5 MCHC (test code=MCHC) 32.6 g/dL 32.0-37.5 RDW (test code=RDW) 18.0 % 11.5-14.5 Platelet Count (test code=PLTCT) 398 K/cumm 140-440 MPV (test code=MPV) 8.9 fL Troponin [id number] 08:01:00* Test Item Value Reference Range Comments Troponin T (test code=BRODIE) 0.043 ng/mL 0.000-0.090 POC Glucose, Pqimt1331-29-92 07:47:00* Test Item Value Reference Range Comments POC Glucose (test code=POCGLUC) 254 mg/dL 70-115 Notify RN or MDIf you consider your patient critically ill, the Irene Accu-Chek InformII metershould not be used for Glucose determinations.Draw a venous Glucose and send to the Main Lab for Analysis. FF Plasma, 2 Vmhub4802-95-46 06:00:00* Test Item Value Reference Range Comments Product 1 Code (test code=PRODCODE1) E7760 Unit 1 ID (test code=UNITID1) [id number] Unit 1 ABO (test code=UNITABO1) A Unit 1 Rh (test code=UNITRH1) POS Unit 1 Status (test code=UNITSTAT1) PT Product 2 Code (test code=PRODCODE2) E2701 Unit 2 ID (test code=UNITID2) [id number] Unit 2 ABO (test code=UNITABO2) A Unit 2 Rh (test code=UNITRH2) POS Unit 2 Status (test code=UNITSTAT2) PT POC Glucose, Ufbqe7696-71-22 20:47:00* Test Item Value Reference Range Comments POC Glucose (test code=POCGLUC) 136 mg/dL 70-115 Notify RN or MDIf you consider your patient critically ill, the Irene Accu-Chek InformII metershould not be used for Glucose determinations.Draw a venous Glucose and send to the Main Lab for Analysis. POC Glucose, Ykgjt8035-83-22 16:39:00* Test Item Value Reference Range Comments POC Glucose (test code=POCGLUC) 181 mg/dL 70-115 If you consider your patient critically ill, the Irene Accu-Chek InformII metershould not be used for Glucose determinations.Draw a venous Glucose and send to the Main Lab for Analysis. POC Glucose, Cxzvs8463-47-92 12:32:00* Test Item Value Reference Range Comments POC Glucose (test code=POCGLUC) 305 mg/dL 70-115 If you consider your patient critically ill, the Irene Accu-Chek InformII metershould not be used for Glucose determinations.Draw a venous Glucose and send to the Main Lab for Analysis. Rfadgqow2162-24-19 09:41:00* Test Item Value Reference Range Comments [...] BY REPEAT TESTING READ BACK LAB VALUESreceived FFPT. RENDON, RN05/09/2017 @ 0941KP MPV (test code=MPV) 7.5 fL Basic Metabolic Oyctw6734-71-18 09:22:00* Test Item Value Reference Range Comments [...] race is not provided, and the patient isAfrican-Fijian, multiply by 1.212. If sex is not provided, and thepatient is female, multiply by 0.742. Results for patients <18 years ofage have not been validated by the MDRD study and should be interpretedwith caution.eGFR Result Interpretation:eGFR > or=60 is in the Normal RangeeGFR < 60 may mean kidney diseaseeGFR < 15 may mean kidney failureRanges recommended by the National Kidney Foundat ion,http://nkdep.nih.gov Prothrombin Pypm9493-94-07 09:16:00* Test Item Value Reference Range Comments PT (test code=PT) 16.60 seconds 9.78-13.35 INR (test code=INR) 1.46 Ratio 0.6-1.2 POC Glucose, Zjcdk7625-72-11 07:57:00* Test Item Value Reference Range Comments POC Glucose (test code=POCGLUC) 126 mg/dL 70-115 If you consider your patient critically ill, the Irene Accu-Chek InformII metershould not be used for Glucose determinations.Draw a venous Glucose and send to the Main Lab for Analysis. Prothrombin Vecp8809-67-61 07:55:00* Test Item Value Reference Range Comments PT (test code=PT) 19.20 seconds 9.78-13.35 READ BACK LAB VALUES VERIFIED BY REPEAT TESTING , Ari REEYS INR (test code=INR) 1.69 Ratio 0.6-1.2 Tabbtxwj4141-67-99 07:26:00* Test Item Value Reference Range Comments WBC (test code=WBC) 8.6 K/cumm 4.4-10.5 RBC (test code=RBC) 2.19 M/cumm 4.10-5.70 Hemoglobin (test code=HGB) 6.5 gm/dL 13.4-17.4 VERIFIED BY REPEAT TESTING READ BACK LAB VALUESASHA EDDY MAOVVGJ2905/09/2017 @ 0726KP Hematocrit (test code=HCT) 20.1 % 38.7-52.0 MCV (test code=MCV) 91.8 fL 80-100 MCH (test code=MCH) 29.6 pg 27.0-32.5 MCHC (test code=MCHC) 32.2 g/dL 32.0-37.5 RDW (test code=RDW) 18.6 % 11.5-14.5 Platelet Count (test code=PLTCT) 124 K/cumm 140-440 VERIFIED BY REPEAT TESTING READ BACK LAB VALUESNO REASONTASHA JUAREZ HNXVUKD5605/09/2017 @ 0726KP MPV (test code=MPV) 12.3 fL Basic Metabolic Czmeu7719-66-57 06:35:00* Test Item Value Reference Range Comments [...] race is not provided, and the patient isAfrican-Fijian, multiply by 1.212. If sex is not provided, and thepatient is female, multiply by 0.742. Results for patients <18 years ofage have not been validated by the MDRD study and should be interpretedwith caution.eGFR Result Interpretation:eGFR > or=60 is in the Normal RangeeGFR < 60 may mean kidney diseaseeGFR < 15 may mean kidney failureRanges recommended by the National Kidney Foundat ion,http://nkdep.nih.gov POC Glucose, [id number] 20:16:00* Test Item Value Reference Range Comments POC Glucose (test code=POCGLUC) 342 mg/dL 70-115 Notify RN or MDIf you consider your patient critically ill, the Irene Accu-Chek InformII metershould not be used for Glucose determinations.Draw a venous Glucose and send to the Main Lab for Analysis. Prothrombin [id number] 12:23:00* Test Item Value Reference Range Comments PT (test code=PT) 72.20 seconds 9.78-13.35 INR (test code=INR) 6.45 Ratio 0.6-1.2 Partial Thromboplastin Ipqe4669-99-06 12:23:00* Test Item Value Reference Range Comments aPTT (test code=PTT) 73.30 seconds 24.39-37.25 Lcvleidp5518-49-90 12:23:00* Test Item Value Reference Range Comments [...] MPV (test code=MPV) 8.1 fL POC Glucose, [id number] 11:25:00* Test Item Value Reference Range Comments POC Glucose (test code=POCGLUC) 111 mg/dL 70-115 If you consider your patient critically ill, the Irene Accu-Chek InformII metershould not be used for Glucose determinations.Draw a venous Glucose and send to the Main Lab for Analysis. POC Glucose, [id number] 07:37:00* Test Item Value Reference Range Comments [...] (test code=FT4) 0.87 ng/dL 0.930-1.700 Basic Metabolic Wqdms4984-37-91 06:33:00* Test Item Value Reference Range Comments [...] race is not provided, and the patient isAfrican-Fijian, multiply by 1.212. If sex is not provided, and thepatient is female, multiply by 0.742. Results for patients <18 years ofage have not been validated by the MDRD study and should be interpretedwith caution.eGFR Result Interpretation:eGFR > or=60 is in the Normal RangeeGFR < 60 may mean kidney diseaseeGFR < 15 may mean kidney failureRanges recommended by the National Kidney Foundat ion,http://nkdep.nih.gov Glycosylated Kyivgynqwe8224-54-95 06:25:00* Test Item Value Reference Range Comments HBA1c (test code=HBA1C) 6.1 % 4.8-5.9 POC Glucose, [id number] 20:22:00* Test Item Value Reference Range Comments POC Glucose (test code=POCGLUC) 97 mg/dL 70-115 If you consider your patient critically ill, the Irene Accu-Chek InformII metershould not be used for Glucose determinations.Draw a venous Glucose and send to the Main Lab for Analysis. CK [id number] 18:58:00* Test Item Value Reference Range Comments CK (test code=CK) HIDE U/L 39-308 CKMB (test code=CKMB) 4.2 ng/mL 0.0-4.9 CKMB% (test code=CKMBP) HIDE % 0.0-3.4 Troponin [id number] 18:55:00* Test Item Value Reference Range Comments Troponin T (test code=BRODIE) 0.104 ng/mL 0.000-0.090 Urinalysis Qsugbnne8125-17-73 17:36:00* Test Item Value Reference Range Comments Color (test code=COLOR) Straw Yellow,Straw,Pl yellow Clarity (test code=CLAR) Clear Clear Specific [place] (test code=SPGR) 1.014 1.001-1.035 pH (test code=PH) [...] /HPF 0-5 Bacteria (test code=BACT) None /HPF [id number] 17:32:00* Test Item Value Reference Range Comments Amphetamine (test code=AMPH) Negative Negative For diagnostic purposes only, positive results should always be assessedin conjunctionwith [...] (test code=ETOHU) <0.01 g/dL 0.00-0.01 POC Glucose, [id number] 15:48:00* Test Item Value Reference Range Comments POC Glucose (test code=POCGLUC) 172 mg/dL 70-115 If you consider your patient critically ill, the Irene Accu-Chek InformII metershould not be used for Glucose determinations.Draw a venous Glucose and send to the Main Lab for Analysis. CK [id number] 13:51:00* Test Item Value Reference Range Comments CKMB (test code=CKMB) 3.7 ng/mL 0.0-4.9 Troponin [id number] 13:50:00* Test Item Value Reference Range Comments Troponin T (test code=BRODIE) 0.078 ng/mL 0.000-0.090 POC Glucose, Yepvz6441-40-11 11:37:00* Test Item Value Reference Range Comments POC Glucose (test code=POCGLUC) 267 mg/dL 70-115 Notify RN or MDIf you consider your patient critically ill, the Irene Accu-Chek InformII metershould not be used for Glucose determinations.Draw a venous Glucose and send to the Main Lab for Analysis. POC Glucose, [id number] 08:13:00* Test Item Value Reference Range Comments POC Glucose (test code=POCGLUC) 307 mg/dL 70-115 If you consider your patient critically ill, the Irene Accu-Chek InformII metershould not be used for Glucose determinations.Draw a venous Glucose and send to the Main Lab for Analysis. CK [id number] 06:30:00* Test Item Value Reference Range Comments CK (test code=CK) 138 U/L 39-308 CKMB (test code=CKMB) 4.4 ng/mL 0.0-4.9 CKMB% (test code=CKMBP) 3.2 % 0.0-3.4 Comprehensive Metabolic [id number] 06:30:00* Test Item Value Reference Range Comments [...] race is not provided, and the patient isAfrican-Fijian, multiply by 1.212. If sex is not provided, and thepatient is female, multiply by 0.742. Results for patients <18 years ofage have not been validated by the MDRD study and should be interpretedwith caution.eGFR Result Interpretation:eGFR > or=60 is in the Normal RangeeGFR < 60 may mean kidney diseaseeGFR < 15 may mean kidney failureRanges recommended by the National Kidney Foundat ion,http://nkdep.nih.gov CK Ervnl9896-61-01 06:30:00* Test Item Value Reference Range Comments CK (test code=CK) 138 U/L 39-308 Antibody Screen - Zqcdtdrq1239-27-87 06:28:00* Test Item Value Reference Range Comments Antibody Screen (test code=ABSCR) Negative Blood Type and [id number] 06:03:00* Test Item Value Reference Range Comments ABO type (test code=ABO) A Rh Type (test code=RH) Negative Occult [id number] 05:41:00* Test Item Value Reference Range Comments Occ Bld (test code=HSOB) Positive Negative Called to Juan Antonio Friedman 05/07/2017 05:41 by [facility] Value [place] Troponin [id number] 05:18:00* Test Item Value Reference Range Comments Troponin T (test code=BRODIE) 0.081 ng/mL 0.000-0.090 Cej-Tsu5340-61-18 05:18:00* Test Item Value Reference Range Comments NT ProBnp (test code=PBNP) 852 pg/mL 0-124 CBC with Htoexjzchufy5531-13-44 05:05:00* Test Item Value Reference Range Comments [...] Lymph Abs (test code=ALYMPH) 1.5 K/cumm 0.5-4.6 [place] Abs (test code=AMONO) 0.6 K/cumm 0.0-1.2 Eos Abs (test code=AEOS) 0.10 K/cumm 0.00-0.74 Baso Abs (test code=ABASO) 0.0 K/cumm 0.00-0.21 Anisocytosis (test code=ANISO) Slight Hypochromic (test code=HYPO) Slight CHEST SINGLE (PORTABLE) [facility] [address] [address] Patient Name: LV GASCA MR #: [id number] : 1965 Age/Sex: 52/M Req #: [id number] Adm Physician: Ordered by: SON GIL MD Report #: [id number] Location: ER Room/Bed: Procedure: DX/CHEST SINGLE (PORTABLE) Exam D ate: 04/02/18 Exam Time: 0023 REPORT STATUS: Epifanio frazier CHEST SINGLE (PORTABLE), 04/02/2018 12:17 AM Technique: CHEST SINGLE (PORTABLE) Comparison: 03/08/2018 Clinical history: Respiratory distress Findings: See Impression Impression: 1. Lines/Tubes: Stable right rajan lysis catheter over the right atrium and additional central venous catheter ov er the cavoatrial junction. 2. Stable to slight increase in mildly enlarged ca rdiac silhouette. 3. Diffuse pulmonary opacities, likely edema, with subsegmen debra bibasilar atelectasis and small effusions. Signed by: Dr Godwin zamorano MD on 04/02/2018 12:50 AM Dictated By: GODWIN TAYLOR MD Electronical ly Signed By: GODWIN TAYLOR MD on 04/02/1849 Transcribed By: SANG on 49 COPY TO: SON GIL MD CHEST SINGLE (PORTABLE) [place] [address] Patient Name: LV GASCA MR #: [id number] : [birth year] Age/Sex: 52/M Req #: [id number] Adm Physician: CORNELIUS ALCANTAR MD Ordered by: CORNELIUS MARTÍNEZ MD Report #: [id number] Location: [facility] Room/Bed: [place] [address] Procedure: [id number] DX/MARIELA ST SINGLE (PORTABLE) Exam Date: 03/08/18 Exam Time: 1435 REPORT STATUS: Signed PROCEDURE: A single AP view of the chest. COMPARISON: Patients [facility], DX, CHEST SINGLE (PORTABLE), 2015, 21:53. INDICATIONS: SHORTNESS OF BREATH FINDINGS: Line s/tubes: Right-sided central line and dialysis catheter, with distal tips pro jecting in the right atrium Lungs: The lungs are well-inflated. There is i ncreased density in the left retrocardiac region with partial obscuration of the hemidiaphragm. Rest of the lungs is grossly clear. Pleura: There i s no pleural effusion or pneumothorax. Heart and mediastinum: Cardiac silh ouette is unremarkable. Pulmonary vasculature is normal. Bones: No acu te bony abnormality. IMPRESSION: 1. findings in the left retrocardi ac region may represent atelectasis or consolidation. Recommend chest PA and lateral for further evaluation. Mariusz Rudolph M.D. Dictat ed by: Mariusz Rudolph M.D. on 03/08/2018 at 15:13 Electronically appr [place] by: Mariusz Rudolph M.D. on 03/08/2018 at 15:13 Dictat ed By: MARIUSZ RUDOLPH MD 1513 COPY TO: CORNELIUS MARTÍNEZ MD HIP RIGHT 2-3 VW (+/- PELVIS) [place] [address] Patient Name: LV GASCA MR #: [id number] : 1965 Age/Sex: 52/M Req #: [id number] Adm Physician: ANGELA WELLS MD Ordered by: MATTHEW BARDALES MD Report #: [id number] Location: [facility] Room/Bed: [place] [address] Procedure: [id number] DX/HIP RI GHT 2-3 VW (+/- PELVIS) Exam Date: Exam Time: REPORT STATUS: Signed PROCEDURE: HIP RIGHT 2-3 VW (+/- PELVIS) COMP ARISON: 03/04/2018.. INDICATIONS: ACUTE NONDISPLACED FRACTURE FIN DINGS: Cortical discontinuity along the lateral aspect of the proximal femu r is again noted, unchanged, compatible with nondisplaced fracture. Int act surgical hardware related to right hip replacement. Multiple iliac and right superficial femoral arterial stents unchanged. CONCLUSION: no appreciable interval change in acute nondisplaced lateral cortical frac ture of the proximal femur. Intact right hip prosthesis. Dictated by: Matthew Gill M.D. on 03/05/2018 at 12:11 Electronically approved by: Matthew Gill M.D. on 03/05/2018 at 12:11 Dictated By: MATTHEW GILL MD Electr onically Signed By: MATTHEW GILL MD on 03/05/18 1211 Transcribed By: DONNA on 03/05/18 1211 COPY TO: MATTHEW BARDALES MD FEMUR TWO VIEW MINIMUM RIGHT [place] [address] Patient Name: LV GASCA MR #: [id number] : 1965 Age/Sex: 52/M Req #: [id number] Adm Physician: Ordered by: LACHO HUNT [employer] Report #: [id number] Location: ER Room/Bed: Procedure: [id number] DX/FEMUR TWO VIEW MINIMUM RIGHT Exam Date: Exam Time: REPORT STATUS: Signed EXAM: FEMUR TWO VIEW MINIMUM RIGHT DATE: 03/04/2018 2:57 PM INDICAT ION: COMPARISON: None FINDINGS: Right hip prosthesis wit h ill-defined cortical discontinuity lateral aspect proximal femur again noted . Advanced vascular calcifications and vascular stent overlying the inguinal r egion present. Additional vascular stent distally. IMPRESSION: Right hip prosthesis with questionable nondisplaced fracture proximal femoral cortex.a Signed by: Dr. Scott Zurita MD on 03/04/2018 3:43 PM Dictated By: SCOTT ZURITA MD 154 T ranscribed By: SANG on 03/04/18 3882 COPY TO: LACHO HUNT [employer] HIP RIGHT 2-3 VW (+/- PELVIS) [place] [address] Patient Name: LV GASCA MR #: [id number] : 1965 Age/Sex: 52/M Req #: [id number] Adm Physician: Ordered by: LACHO HUNT [employer] Report #: [id number] Location: ER Room/Bed: Procedure: [id number] DX/HIP RIGHT 2-3 VW (+/- PELVIS) Exam Date: Exam Time: REPORT STATUS: Signed EXAM: HIP RIGHT 2-3 VW (+/- PELVIS) DATE: 03/04/2018 2:20 PM INDIC ATION: COMPARISON: None FINDINGS: Right hip prosthesis p resent, in satisfactory alignment. On the frontal view there is a faint lucenc y in the lateral cortex of the proximal femur. Vascular calcifications and vas cular stents overlie the pelvis and right hip. IMPRESSION: Right hip pro sthesis. Vague cortical discontinuity laterally could represent nondisplaced f racture. Signed by: Dr. Scott Zurita MD on 03/04/2018 3:42 PM Dictat ed By: SCOTT ZURITA MD 1542 COPY TO: LACHO HUNT NP
[2018-10-22 22:57] LABS: BASOPHILS # (AUTO) 0.1 (0.0-0.1); BASOPHILS % 0.8 % (0.0-1.0); EOSINOPHILS # (AUTO) 0.1 (0.0-0.4); EOSINOPHILS % 0.9 % (0.0-6.0); HEMATOCRIT 33.5 % (38.2-49.6); HEMOGLOBIN 10.9 g/dL (14.0-18.0); LYMPHOCYTES # (AUTO) 1.2 (1.0-3.2); LYMPHOCYTES % 11.8 % (18.0-39.1); MEAN CORPUSCULAR HEMOGLOBIN 28.3 pg (28-32); MEAN CORPUSCULAR HGB CONC 32.5 g/dL (31-35); MONOCYTES # (AUTO) 0.4 (0.2-0.8); MONOCYTES % 4.5 % (4.4-11.3); NEUTROPHILS # (AUTO) 7.9 (2.1-6.9); NEUTROPHILS % 81.8 % (38.7-80.0); PLATELET COUNT 418 x10e3/uL (140-360); RED BLOOD COUNT 3.85 x10e6/uL (4.3-5.7)
[2018-10-22 23:13] LABS: INR 1.18
== END 2018-10-22 22:47 | disposition left against medical advice (07) ==
LOC: ER 20:54
DX: I13.0 Hypertensive heart and chronic kidney disease with heart failure and stage 1 through stage 4 chronic kidney disease, or unspecified chronic kidney disease (principal); I50.9 Heart failure, unspecified; Z53.29 Procedure and treatment not carried out because of patient's decision for other reasons; N18.9 Chronic kidney disease, unspecified; E11.22 Type 2 diabetes mellitus with diabetic chronic kidney disease; Z79.4 Long term (current) use of insulin; J44.9 Chronic obstructive pulmonary disease, unspecified; E78.5 Hyperlipidemia, unspecified; I73.9 Peripheral vascular disease, unspecified; I25.10 Atherosclerotic heart disease of native coronary artery without angina pectoris; Z95.5 Presence of coronary angioplasty implant and graft; Z79.02 Long term (current) use of antithrombotics/antiplatelets; Z95.820 Peripheral vascular angioplasty status with implants and grafts; J43.9 Emphysema, unspecified
CPT/HCPCS: 36415; 83880; 85025; 85610; 85730; 93005; 99282